=== PATIENT | female | born 1960 | race Hispanic/Latino ===

== ENCOUNTER → 2020-01-12 | Outpatient (CLI) | payer BC | END | disposition home or self-care (01) | LOC: RAH 08:30 | PROVIDERS: ATTEND Internal Medicine Gastroenterology | DX: K74.60 Unspecified cirrhosis of liver (principal) | CPT/HCPCS: 76700; 93975 ==

== ENCOUNTER → 2021-02-28 | Outpatient (CLI) | payer OTHER ==
[~2021-02-28] MED LIST: ALBUMIN (HUMAN) 25% 200 ML IV SCH
[2021-02-28 08:29] LABS: BASOPHILS % (AUTO) 0.8 % (0.0-5.0); EOSINOPHILS % (AUTO) 3.2 % (0.0-8.0); HEMATOCRIT 32.3 % (36-48); LYMPHOCYTES % (AUTO) 18.1 % (21.0-51.0); MEAN CORPUSCULAR HEMOGLOBIN 27.9 pg (27.0-33.0); MEAN CORPUSCULAR HGB CONC 32.8 g/dL (32.0-36.0); MONOCYTES % (AUTO) 10.1 % (3.0-13.0); NEUTROPHILS % (AUTO) 67.6 % (40.0-77.0); PLATELET COUNT (AUTO) 72 K/uL (130-400); RED CELL DISTRIBUTION WIDTH 16.2 % (11.0-15.5)
[2021-02-28 08:45] LABS: ALBUMIN 2.5 g/dL (3.5-5.0); BILIRUBIN,TOTAL 1.4 mg/dL (0.2-1.0); CREATININE 0.7 mg/dL (0.5-1.5)
[2021-02-28 08:48] LABS: INR 1.1 (0.85-1.15); PROTHROMBIN TIME 11.9 SEC (9.6-11.6)
[2021-02-28 13:20] LABS: SPECIMENTYPE,BODY FLUID ASCITES
[2021-02-28 13:21] LABS: APPEARANCE BODY FLUID SLIGHTLY CLOUDY (CLEAR); COLOR,BODY FLUID YELLOW (LT YELLOW); TOTAL VOLUME,BODY FLUID 4500 mL
[2021-02-28 13:22] LABS: BODY FLUID RBC 123 /cu. mm.; BODY FLUID WBC 200 /cu. mm.
[2021-02-28 13:43] LABS: ALBUMIN,BODY FLUID 0.3 g/dL
[2021-02-28 14:04] LABS: BF LYMPHOCYTE 45 %; BF MESOTHELIAL 21 %; BF MONOCYTE 34 %
== END | disposition home or self-care (01) ==
LOC: RAH 06:40
PROVIDERS: ATTEND Internal Medicine Gastroenterology
DX: R18.8 Other ascites (principal); K74.60 Unspecified cirrhosis of liver; Z79.01 Long term (current) use of anticoagulants
CPT/HCPCS: 36415; 49083; 80053; 82042; 84157; 85025; 85610; 87071; 87205; 88112; 88305; 89051; C1729; P9046; 96365

== ENCOUNTER → 2021-12-22 | Outpatient (CLI) | payer OTHER ==
[~2021-12-22] MED LIST changes: +LIDOCAINE HCL MPF 1% 5ML VIAL ONE
[2021-12-22 09:54] LABS: BASOPHILS % (AUTO) 0.7 % (0.0-5.0); EOSINOPHILS % (AUTO) 5.4 % (0.0-8.0); HEMATOCRIT 32.8 % (36-48); LYMPHOCYTES % (AUTO) 16.7 % (21.0-51.0); MEAN CORPUSCULAR HEMOGLOBIN 29.8 pg (27.0-33.0); MEAN CORPUSCULAR HGB CONC 34.1 g/dL (32.0-36.0); MEAN CORPUSCULAR VOLUME 87.2 fL (79-99); MONOCYTES % (AUTO) 12.3 % (3.0-13.0); NEUTROPHILS % (AUTO) 64.7 % (40.0-77.0); PLATELET COUNT (AUTO) 70 K/uL (130-400); RED BLOOD CELL COUNT(AUTO) 3.76 MIL/uL (4.00-5.50); RED CELL DISTRIBUTION WIDTH 14.5 % (11.0-15.5); WHITE BLOOD COUNT (AUTO) 4.1 K/uL (4.8-10.8)
[2021-12-22 10:01] LABS: INR 1.05 (0.85-1.15); PROTHROMBIN TIME 11.4 SEC (9.6-11.6)
[2021-12-22 10:19] LABS: BILIRUBIN,TOTAL 2.2 mg/dL (0.2-1.0); CREATININE 0.6 mg/dL (0.5-1.5); POTASSIUM 4.5 mmol/L (3.5-5.1); TOTAL PROTEIN, SERUM 7.4 g/dL (6.0-8.3)
[2021-12-22 12:34] LABS: SPECIMENTYPE,BODY FLUID ASCITES
[2021-12-22 12:35] LABS: APPEARANCE BODY FLUID CLEAR (CLEAR); BODY FLUID RBC 253 /cu. mm.; BODY FLUID WBC 273 /cu. mm.; COLOR,BODY FLUID YELLOW (LT YELLOW); TOTAL VOLUME,BODY FLUID 5000 mL
[2021-12-22 13:21] LABS: BF LYMPHOCYTE 54 %; BF MESOTHELIAL 37 %; BF MONOCYTE 4 %
== END | disposition home or self-care (01) ==
LOC: RAH 08:50
PROVIDERS: ATTEND Internal Medicine Gastroenterology
DX: R18.8 Other ascites (principal); R06.02 Shortness of breath; K74.60 Unspecified cirrhosis of liver; I10 Essential (primary) hypertension; E78.5 Hyperlipidemia, unspecified; E11.9 Type 2 diabetes mellitus without complications; F32.A Depression, unspecified; E66.9 Obesity, unspecified; Z90.710 Acquired absence of both cervix and uterus; Z79.899 Other long term (current) drug therapy; Z79.84 Long term (current) use of oral hypoglycemic drugs; Z98.51 Tubal ligation status; Z79.01 Long term (current) use of anticoagulants; Z86.010 Personal history of colon polyps; Z98.890 Other specified postprocedural states; Z68.31 Body mass index [BMI] 31.0-31.9, adult
CPT/HCPCS: 36415; 49083; 71046; 80053; 85025; 85610; 87071; 87205; 89051; C1729; P9046; 96365; J3490

== ENCOUNTER → 2022-04-14 | Outpatient (CLI) | payer OTHER | END | disposition home or self-care (01) | LOC: RAH 08:53 | PROVIDERS: ATTEND Internal Medicine Gastroenterology | DX: K74.60 Unspecified cirrhosis of liver (principal); K59.89 Other specified functional intestinal disorders | CPT/HCPCS: 76700; 93975 ==

== ENCOUNTER → 2022-11-23 | Outpatient (CLI) | payer OTHER | END | disposition home or self-care (01) | LOC: RAH 09:40 | PROVIDERS: ATTEND Internal Medicine Gastroenterology | DX: K74.60 Unspecified cirrhosis of liver (principal); I82.0 Budd-Chiari syndrome | CPT/HCPCS: 76700; 93975 ==

== ENCOUNTER 2023-04-19 14:33 | Emergency (ER) | payer OTHER ==
[~2023-04-19] VITALS: Ht 152.4 cm; Wt 74.4 kg
[2023-04-19] MEDS ORDERED: LIDOP TP (20:21)
[2023-04-19] MEDS ORDERED: MUPI22OI2 TP (20:21)
[2023-04-19 20:28] VITALS: BP 131/62; PULSE 69; RESP 17; O2SAT 97
== END 2023-04-19 20:34 | disposition home or self-care (01) ==
LOC: EDH 14:33
DX: S20.219A Contusion of unspecified front wall of thorax, initial encounter (principal); S91.311A Laceration without foreign body, right foot, initial encounter; E11.9 Type 2 diabetes mellitus without complications; I10 Essential (primary) hypertension; V89.2XXA Person injured in unspecified motor-vehicle accident, traffic, initial encounter; Y93.89 Activity, other specified; Y92.89 Other specified places as the place of occurrence of the external cause; Y99.8 Other external cause status
CPT/HCPCS: 12002; 71046; 72170; 84484; 93005

== ENCOUNTER 2023-05-30 15:19 | Observation (INO) | payer OTHER ==
[~2023-05-30] VITALS: Ht 152.4 cm; Wt 80.5 kg
[~2023-05-30 15:19] MED LIST changes: -ALBUMIN (HUMAN) 25% 200 ML IV SCH; -LIDOCAINE HCL MPF 1% 5ML VIAL ONE; +LIDOP TP; +MUPI22OI2 TP
[2023-05-30 15:56] LABS: HEMATOCRIT 29.9 % (36-48); MEAN CORPUSCULAR HEMOGLOBIN 30.1 pg (27.0-33.0); MEAN CORPUSCULAR HGB CONC 34.8 g/dL (32.0-36.0); MEAN CORPUSCULAR VOLUME 86.7 fL (79-99); PLATELET COUNT (AUTO) 59 K/uL (130-400); RED BLOOD CELL COUNT(AUTO) 3.45 MIL/uL (4.00-5.50); RED CELL DISTRIBUTION WIDTH 14.7 % (11.0-15.5); WHITE BLOOD COUNT (AUTO) 4.3 K/uL (4.8-10.8)
[2023-05-30 16:08] LABS: CREATININE 1.1 mg/dL (0.5-1.5)
[2023-05-30 16:12] LABS: BILIRUBIN,TOTAL 1.8 mg/dL (0.2-1.0); TOTAL PROTEIN, SERUM 7.1 g/dL (6.0-8.3)
[2023-05-30 16:27] LABS: PLATELET MORPHOLOGY COMMENT DECREASED
[2023-05-30 17:51] LABS: INR 0.94 (0.85-1.15); PROTHROMBIN TIME 10.9 SEC (9.6-11.6)
[2023-05-30 17:53] LABS: PARTIAL THROMBOPLASTIN TIME 27.3 SEC (26.3-35.5)
[2023-05-30] MEDS ORDERED: ONDANSETRON 4MG INJ IV PRN (20:30)
[2023-05-30] MEDS ORDERED: DEXTROSE 50%-WATER 50 ML DISP.SYRIN IV PRN (21:00)
[2023-05-30] MEDS: INSULIN HUMULIN R 100 UNIT/ML 3ML SQ SCH (21:00)
[2023-05-30] MEDS ORDERED: MAGNESIUM 2GM PREMIX 50ML 50 ML IV PRN (21:00)
[2023-05-30] MEDS ORDERED: GLUCAGON 1MG KIT 1 MG ML IM PRN (21:00)
[2023-05-30] MEDS ORDERED: POTASSIUM CHLORIDE 20MEQ/100ML 100 ML IV PRN (21:00)
[2023-05-30] MEDS: CEFTRIAXONE 1G VIAL IVPB SCH (21:23)
[2023-05-30] MEDS: FAMOTIDINE 20MG VIAL IV SCH (21:23)
[2023-05-30] MEDS ORDERED: GABA-529 PO (22:23)
[2023-05-30] MEDS ORDERED: OMEP40CA21 PO (22:23)
[2023-05-30] MEDS ORDERED: PROP10TA10 PO (22:23)
[2023-05-30] MEDS ORDERED: LISI2.5T13 PO (22:23)
[2023-05-30] MEDS ORDERED: INSU100I24 SQ (22:23)
[2023-05-30] MEDS ORDERED: CALC-190 PO (22:23)
[2023-05-30] MEDS ORDERED: RIFA550T PO (22:23)
[2023-05-30] MEDS ORDERED: FOLI1TAB85 PO (22:23)
[2023-05-30] MEDS ORDERED: LINA5TAB PO (22:23)
[2023-05-30] MEDS ORDERED: SPIR100T5 PO (22:23)
[2023-05-30] MEDS ORDERED: FURO40TA5 PO (22:23)
[2023-05-30] MEDS ORDERED: LACT10SO9 PO (22:23)
[2023-05-31] VITALS (17 sets, daily range): BP systolic 135–163; BP diastolic 39–68; PULSE 67–87; RESP 16–19; O2SAT 97
[2023-05-31] MEDS: INSULIN HUMULIN R 100 UNIT/ML 3ML SQ SCH ×4 (05:44→20:38)
[2023-05-31 07:17] LABS: BASOPHILS # (AUTO) 0.03 K/uL (0.00-0.20); BASOPHILS % (AUTO) 0.8 % (0.0-5.0); EOSINOPHILS # (AUTO) 0.23 K/uL (0.00-0.70); EOSINOPHILS % (AUTO) 6.5 % (0.0-8.0); HEMATOCRIT 28.7 % (36-48); IMMATURE GRANULOCYTE ABSOLUTE 0.01 K/uL (0-1); LYMPHOCYTES # (AUTO) 0.7 K/uL (1.0-4.8); LYMPHOCYTES % (AUTO) 18.4 % (21.0-51.0); MEAN CORPUSCULAR HEMOGLOBIN 29.8 pg (27.0-33.0); MEAN CORPUSCULAR HGB CONC 33.8 g/dL (32.0-36.0); MEAN CORPUSCULAR VOLUME 88.3 fL (79-99); MONOCYTES # (AUTO) 0.4 K/uL (0.1-1.0); NEUTROPHILS # (AUTO) 2.2 K/uL (1.8-7.7); PLATELET COUNT (AUTO) 51 K/uL (130-400); RED BLOOD CELL COUNT(AUTO) 3.25 MIL/uL (4.00-5.50); RED CELL DISTRIBUTION WIDTH 14.6 % (11.0-15.5); WHITE BLOOD COUNT (AUTO) 3.5 K/uL (4.8-10.8)
[2023-05-31 07:33] LABS: ALBUMIN 2.7 g/dL (3.5-5.0); BILIRUBIN,TOTAL 1.6 mg/dL (0.2-1.0); CREATININE 0.9 mg/dL (0.5-1.5); MAGNESIUM 1.3 mg/dL (1.80-2.40); POTASSIUM 3.9 mmol/L (3.5-5.1); TOTAL PROTEIN, SERUM 6.2 g/dL (6.0-8.3)
[2023-05-31 08:28] LABS: B-TYPE NATRIURETIC PEPTIDE 20 pg/mL (0-100)
[2023-05-31] MEDS: FAMOTIDINE 20MG VIAL IV SCH ×2 (08:29→19:54)
[2023-05-31 10:04] LABS: HEMOGLOBIN A1C 9.9 % (4.0-6.0)
[2023-05-31 10:27] LABS: CHOLESTEROL 105 mg/dL (<200); HDL CHOLESTEROL 29 mg/dL (35-85); LDL DIRECT 70 mg/dL (0-99); TRIGLYCERIDES 72 mg/dL (30-200)
[2023-05-31 14:26] LABS: BODY FLUID RBC 594 /cu. mm.; BODY FLUID WBC 208 /cu. mm.
[2023-05-31 14:32] LABS: APPEARANCE BODY FLUID SLIGHTLY CLOUDY (CLEAR); COLOR,BODY FLUID YELLOW (LT YELLOW); SPECIMENTYPE,BODY FLUID ASCITES
[2023-05-31 14:33] LABS: TOTAL VOLUME,BODY FLUID 3000 mL
[2023-05-31 15:05] LABS: BF LYMPHOCYTE 34 %; BF MACROPHAGE 55; BF OTHER CELLS 1; BF TOTAL CELLS COUNTED 100
[2023-05-31] MEDS: CEFTRIAXONE 1G VIAL IVPB SCH (19:54)
[2023-06-01] VITALS: BP 125/50; PULSE 78; RESP 16
[2023-06-01 03:56] VITALS: BP 124/57; PULSE 75; RESP 16
[2023-06-01] MEDS: INSULIN HUMULIN R 100 UNIT/ML 3ML SQ SCH ×2 (05:43→11:39)
[2023-06-01 08:00] VITALS: BP 133/62; PULSE 75; RESP 18; O2SAT 98
[2023-06-01 08:59] LABS: MEAN CORPUSCULAR HEMOGLOBIN 29.8 pg (27.0-33.0); MEAN CORPUSCULAR HGB CONC 33.8 g/dL (32.0-36.0); MEAN CORPUSCULAR VOLUME 88.2 fL (79-99); RED BLOOD CELL COUNT(AUTO) 3.63 MIL/uL (4.00-5.50); RED CELL DISTRIBUTION WIDTH 14.5 % (11.0-15.5); WHITE BLOOD COUNT (AUTO) 3.7 K/uL (4.8-10.8)
[2023-06-01 09:06] LABS: POTASSIUM 4.8 mmol/L (3.5-5.1)
[2023-06-01 09:11] LABS: ALBUMIN 2.8 g/dL (3.5-5.0); BILIRUBIN,TOTAL 1.6 mg/dL (0.2-1.0); TOTAL PROTEIN, SERUM 6.9 g/dL (6.0-8.3)
[2023-06-01] MEDS: FAMOTIDINE 20MG VIAL IV SCH (09:15)
[2023-06-01] MEDS ORDERED: MAGNESIUM 2GM PREMIX 50ML 50 ML IV SCH (10:30)
[2023-06-01] MEDS ORDERED: MAGNESIUM OXIDE 400 MG TABLET PO ONE ×2 (11:30)
[2023-06-01 12:00] VITALS: BP 143/86; PULSE 76; RESP 16
[2023-06-01] MEDS ORDERED: PROPRANOLOL HCL 10 MG TAB PO SCH (14:00)
[2023-06-01] MEDS ORDERED: RIFAXIMIN 550 MG TABLET PO SCH (21:00)
[2023-06-01] MEDS ORDERED: GABAPENTIN 100 MG CAPSULE PO SCH (21:00)
[2023-06-01] MEDS ORDERED: LACTULOSE 20 GM/30 ML UDCUP PO SCH (21:00)
[2023-06-02] MEDS ORDERED: CA 600MG+VIT D 400 UNIT TAB 1 TAB TABLET PO SCH (09:00)
[2023-06-02] MEDS ORDERED: LISINOPRIL 2.5 MG TABLET PO SCH (09:00)
[2023-06-02] MEDS ORDERED: INSULIN GLARGINE 100 UNITS/ML 10 ML VIAL SQ SCH (09:00)
[2023-06-02] MEDS ORDERED: NON-FORMULARY MEDICATION 1 EACH (Omeprazole 40 MG) PO SCH (09:00)
[2023-06-02] MEDS ORDERED: INSULIN DEGLUDEC 24 UNIT SQ SCH (09:00)
[2023-06-02] MEDS ORDERED: LINAGLIPTIN 5 MG TABLET PO SCH (09:00)
[2023-06-02] MEDS ORDERED: NON-FORMULARY MEDICATION 1 EACH (Vit B Cmplx 3/FA/Vit C/Biotin (Rena-Vite Rx Tablet) 1 EAC PO SCH (09:00)
[2023-06-02] MEDS ORDERED: SPIRONOLACTONE 25 MG TAB PO SCH (09:00)
[2023-06-02] MEDS ORDERED: FUROSEMIDE 40 MG TABLET PO SCH (09:00)
[2023-06-02] MEDS ORDERED: Vitamin B Complex/Vit C/Folic Acid PO SCH (09:00)
[2023-06-02] MEDS ORDERED: SPIRONOLACTONE 100 MG PO SCH (09:00)
[2023-06-02] MEDS ORDERED: PANTOPRAZOLE 40 MG TAB DR PO SCH (09:00)
== END 2023-06-01 13:15 | disposition home or self-care (01) ==
LOC: EDH 15:19 → EDHIP 20:39 → 4BH 05-31 00:41
PROVIDERS: ADMIT Hospitalist; ATTEND Hospitalist
DX: R18.8 Other ascites (principal); K74.60 Unspecified cirrhosis of liver; D72.819 Decreased white blood cell count, unspecified; D69.6 Thrombocytopenia, unspecified; D64.9 Anemia, unspecified; E87.1 Hypo-osmolality and hyponatremia; E44.1 Mild protein-calorie malnutrition; I10 Essential (primary) hypertension; E11.9 Type 2 diabetes mellitus without complications; E83.42 Hypomagnesemia; K29.70 Gastritis, unspecified, without bleeding; Z90.710 Acquired absence of both cervix and uterus; Z79.899 Other long term (current) drug therapy; Z98.890 Other specified postprocedural states; Z79.4 Long term (current) use of insulin; Z68.34 Body mass index [BMI] 34.0-34.9, adult
CPT/HCPCS: 96375; 99284; 83735 ×3; 80053 ×3; 85027 ×2; 85610; 85730; 82948 ×6; 36415 ×3; 71045; 96376 ×2; 96365; 83036; 80061; 83880; 85025; 89051; 87071; 87205; 82306; 82607; 49083; G0378 ×40; J3490 ×4; J0696 ×2; J3475; C1729; J1815

== ENCOUNTER → 2023-07-04 | Outpatient (CLI) | payer OTHER ==
[~2023-07-04] MED LIST changes: +ALBUMIN (HUMAN) 25% 200 ML IV SCH; +CALC-190 PO; +FOLI1TAB85 PO; +FURO40TA5 PO; +GABA-529 PO; +INSU100I24 SQ; +LACT10SO9 PO; -LIDOP TP; +LINA5TAB PO; +LISI2.5T13 PO; -MUPI22OI2 TP; +OMEP40CA21 PO; +PROP10TA10 PO; +RIFA550T PO; +SPIR100T5 PO
[2023-07-04 11:10] LABS: BASOPHILS # (AUTO) 0.03 K/uL (0.00-0.20); BASOPHILS % (AUTO) 0.4 % (0.0-5.0); EOSINOPHILS # (AUTO) 0.27 K/uL (0.00-0.70); HEMATOCRIT 31.6 % (36-48); IMMATURE GRANULOCYTE ABSOLUTE 0.04 K/uL (0-1); LYMPHOCYTES # (AUTO) 0.8 K/uL (1.0-4.8); MEAN CORPUSCULAR HEMOGLOBIN 29.6 pg (27.0-33.0); MEAN CORPUSCULAR HGB CONC 33.9 g/dL (32.0-36.0); MEAN CORPUSCULAR VOLUME 87.5 fL (79-99); MONOCYTES # (AUTO) 0.7 K/uL (0.1-1.0); MONOCYTES % (AUTO) 10.6 % (3.0-13.0); NEUTROPHILS # (AUTO) 4.8 K/uL (1.8-7.7); NEUTROPHILS % (AUTO) 72.4 % (40.0-77.0); PLATELET COUNT (AUTO) 67 K/uL (130-400); RED BLOOD CELL COUNT(AUTO) 3.61 MIL/uL (4.00-5.50); RED CELL DISTRIBUTION WIDTH 14.8 % (11.0-15.5); WHITE BLOOD COUNT (AUTO) 6.7 K/uL (4.8-10.8)
[2023-07-04 11:22] LABS: INR 1.08 (0.85-1.15); PROTHROMBIN TIME 12.5 SEC (9.6-11.6)
[2023-07-04 11:23] LABS: PARTIAL THROMBOPLASTIN TIME 29.8 SEC (26.3-35.5)
[2023-07-04 11:26] LABS: BILIRUBIN,TOTAL 1.7 mg/dL (0.2-1.0); CREATININE 0.8 mg/dL (0.5-1.5); POTASSIUM 4.2 mmol/L (3.5-5.1); TOTAL PROTEIN, SERUM 7.1 g/dL (6.0-8.3)
[2023-07-04 15:54] LABS: BODY FLUID RBC 478 /cu. mm.; BODY FLUID WBC 386 /cu. mm.
[2023-07-04 16:04] LABS: TOTAL PROTEIN,BODY FLUID < 2.0 g/dL
[2023-07-04 16:05] LABS: ALBUMIN,BODY FLUID < 0.6 g/dL
[2023-07-04 16:06] LABS: APPEARANCE BODY FLUID SLIGHTLY CLOUDY (CLEAR); COLOR,BODY FLUID LT YELLOW (LT YELLOW); SPECIMENTYPE,BODY FLUID ASCITES; TOTAL VOLUME,BODY FLUID 3700 mL
[2023-07-04 16:15] LABS: BF LYMPHOCYTE 59 %; BF MACROPHAGE 20; BF OTHER CELLS 1; BF TOTAL CELLS COUNTED 100
== END | disposition home or self-care (01) ==
LOC: RAH 09:45
PROVIDERS: ATTEND Internal Medicine Gastroenterology
DX: R18.8 Other ascites (principal); K74.69 Other cirrhosis of liver; Z79.01 Long term (current) use of anticoagulants
CPT/HCPCS: 49083; 84157; 80053; 85025; 89051; 85610; 85730; 87071; 87076; 87205; 82042; 36415; 88305; 88112; C1729

== ENCOUNTER → 2023-08-29 | Outpatient (CLI) | payer OTHER ==
[~2023-08-29] MED LIST changes: -ALBUMIN (HUMAN) 25% 200 ML IV SCH
[2023-08-29 10:46] LABS: BASOPHILS # (AUTO) 0.05 K/uL (0.00-0.20); EOSINOPHILS # (AUTO) 0.23 K/uL (0.00-0.70); EOSINOPHILS % (AUTO) 4.5 % (0.0-8.0); HEMATOCRIT 32.4 % (36-48); IMMATURE GRANULOCYTE ABSOLUTE 0.07 K/uL (0-1); LYMPHOCYTES # (AUTO) 0.5 K/uL (1.0-4.8); LYMPHOCYTES % (AUTO) 9.4 % (21.0-51.0); MEAN CORPUSCULAR HEMOGLOBIN 29.2 pg (27.0-33.0); MEAN CORPUSCULAR VOLUME 88.3 fL (79-99); MONOCYTES # (AUTO) 0.5 K/uL (0.1-1.0); MONOCYTES % (AUTO) 9.4 % (3.0-13.0); NEUTROPHILS # (AUTO) 3.8 K/uL (1.8-7.7); NEUTROPHILS % (AUTO) 74.3 % (40.0-77.0); PLATELET COUNT (AUTO) 117 K/uL (130-400); RED BLOOD CELL COUNT(AUTO) 3.67 MIL/uL (4.00-5.50); RED CELL DISTRIBUTION WIDTH 14.7 % (11.0-15.5); WHITE BLOOD COUNT (AUTO) 5.1 K/uL (4.8-10.8)
[2023-08-29 10:57] LABS: INR 0.94 (0.85-1.15)
[2023-08-29 10:59] LABS: PARTIAL THROMBOPLASTIN TIME 31.5 SEC (26.3-35.5)
[2023-08-29 11:00] LABS: ALBUMIN 2.5 g/dL (3.5-5.0); BILIRUBIN,TOTAL 1.1 mg/dL (0.2-1.0); CREATININE 1.1 mg/dL (0.5-1.5); POTASSIUM 5.4 mmol/L (3.5-5.1); TOTAL PROTEIN, SERUM 7.1 g/dL (6.0-8.3)
[2023-08-29] MEDS: ALBUMIN (HUMAN) 25% 200 ML IV SCH (14:23)
[2023-08-29 17:27] LABS: BODY FLUID RBC 809 /cu. mm.; BODY FLUID WBC 415 /cu. mm.
[2023-08-29 17:30] LABS: APPEARANCE BODY FLUID CLOUDY (CLEAR); COLOR,BODY FLUID YELLOW (LT YELLOW); SPECIMENTYPE,BODY FLUID ASCITES; TOTAL VOLUME,BODY FLUID 7000 mL
[2023-08-29 17:45] LABS: BF EOSINOPHIL 1 %; BF MESOTHELIAL 1 %; BF OTHER CELLS 1; BF TOTAL CELLS COUNTED 100
[2023-08-29 18:08] LABS: BF LYMPHOCYTE 27 %; BF MACROPHAGE 39
== END | disposition home or self-care (01) ==
LOC: RAH 09:55
PROVIDERS: ATTEND Internal Medicine Gastroenterology
DX: R18.8 Other ascites (principal); K74.69 Other cirrhosis of liver; E11.9 Type 2 diabetes mellitus without complications; I10 Essential (primary) hypertension; I85.00 Esophageal varices without bleeding; I81 Portal vein thrombosis; K21.00 Gastro-esophageal reflux disease with esophagitis, without bleeding; K72.90 Hepatic failure, unspecified without coma; D12.6 Benign neoplasm of colon, unspecified; K57.30 Diverticulosis of large intestine without perforation or abscess without bleeding; F32.A Depression, unspecified; E55.9 Vitamin D deficiency, unspecified; E78.5 Hyperlipidemia, unspecified; K64.9 Unspecified hemorrhoids; E66.9 Obesity, unspecified; Z68.33 Body mass index [BMI] 33.0-33.9, adult; Z79.84 Long term (current) use of oral hypoglycemic drugs; Z86.73 Personal history of transient ischemic attack (TIA), and cerebral infarction without residual deficits; Z79.4 Long term (current) use of insulin; Z79.899 Other long term (current) drug therapy; Z90.710 Acquired absence of both cervix and uterus
CPT/HCPCS: 49083; 80053; 85025; 89051; 85610; 85730; 36415; P9046; C1729; 96365

== ENCOUNTER → 2023-10-23 | Outpatient (CLI) | payer OTHER ==
[~2023-10-23] MED LIST changes: +ALBUMIN (HUMAN) 25% 200 ML IV SCH
[2023-10-23] MEDS: ALBUMIN (HUMAN) 25% 200 ML IV SCH (10:19)
[2023-10-23 10:24] LABS: BASOPHILS # (AUTO) 0.04 K/uL (0.00-0.20); BASOPHILS % (AUTO) 0.4 % (0.0-5.0); EOSINOPHILS # (AUTO) 0.12 K/uL (0.00-0.70); EOSINOPHILS % (AUTO) 1.2 % (0.0-8.0); HEMATOCRIT 30.7 % (36-48); IMMATURE GRANULOCYTE ABSOLUTE 0.06 K/uL (0-1); LYMPHOCYTES # (AUTO) 0.5 K/uL (1.0-4.8); LYMPHOCYTES % (AUTO) 5.1 % (21.0-51.0); MEAN CORPUSCULAR HEMOGLOBIN 29.7 pg (27.0-33.0); MEAN CORPUSCULAR HGB CONC 32.6 g/dL (32.0-36.0); MEAN CORPUSCULAR VOLUME 91.1 fL (79-99); MONOCYTES # (AUTO) 0.6 K/uL (0.1-1.0); MONOCYTES % (AUTO) 5.9 % (3.0-13.0); NEUTROPHILS # (AUTO) 8.8 K/uL (1.8-7.7); NEUTROPHILS % (AUTO) 86.8 % (40.0-77.0); PLATELET COUNT (AUTO) 88 K/uL (130-400); RED BLOOD CELL COUNT(AUTO) 3.37 MIL/uL (4.00-5.50); WHITE BLOOD COUNT (AUTO) 10.1 K/uL (4.8-10.8)
[2023-10-23 10:27] LABS: INR 1.05 (0.85-1.15); PROTHROMBIN TIME 12.3 SEC (9.6-11.6)
[2023-10-23 10:29] LABS: PARTIAL THROMBOPLASTIN TIME 29.5 SEC (26.3-35.5)
[2023-10-23 10:30] LABS: ALBUMIN 2.8 g/dL (3.5-5.0); BILIRUBIN,TOTAL 2.8 mg/dL (0.2-1.0); POTASSIUM 5.1 mmol/L (3.5-5.1); TOTAL PROTEIN, SERUM 7.3 g/dL (6.0-8.3)
[2023-10-23 17:04] LABS: BODY FLUID RBC 210 /cu. mm.; BODY FLUID WBC 280 /cu. mm.
[2023-10-23 17:41] LABS: COLOR,BODY FLUID LT YELLOW (LT YELLOW); SPECIMENTYPE,BODY FLUID ASCITES
[2023-10-23 17:42] LABS: APPEARANCE BODY FLUID SLIGHTLY CLOUDY (CLEAR); TOTAL VOLUME,BODY FLUID 7200 mL
[2023-10-23 18:16] LABS: BF EOSINOPHIL 3 %; BF LYMPHOCYTE 11 %; BF MACROPHAGE 37; BF MESOTHELIAL 2 %; BF OTHER CELLS 2; BF TOTAL CELLS COUNTED 100
== END | disposition home or self-care (01) ==
LOC: RAH 09:09
PROVIDERS: ATTEND Internal Medicine Gastroenterology
DX: R18.8 Other ascites (principal); K74.69 Other cirrhosis of liver; I85.10 Secondary esophageal varices without bleeding; R14.0 Abdominal distension (gaseous); K64.9 Unspecified hemorrhoids; E55.9 Vitamin D deficiency, unspecified; I11.0 Hypertensive heart disease with heart failure; K21.00 Gastro-esophageal reflux disease with esophagitis, without bleeding; K72.90 Hepatic failure, unspecified without coma; K57.30 Diverticulosis of large intestine without perforation or abscess without bleeding; I81 Portal vein thrombosis; E11.9 Type 2 diabetes mellitus without complications; E78.5 Hyperlipidemia, unspecified; F32.A Depression, unspecified; E66.9 Obesity, unspecified; Z79.01 Long term (current) use of anticoagulants; Z79.899 Other long term (current) drug therapy; Z86.010 Personal history of colon polyps; Z68.35 Body mass index [BMI] 35.0-35.9, adult
CPT/HCPCS: 49083; 80053; 85025; 89051; 85610; 85730; 36415; P9046; C1729

== ENCOUNTER → 2023-11-22 | Outpatient (CLI) | payer OTHER ==
[2023-11-22 09:45] LABS: BASOPHILS # (AUTO) 0.03 K/uL (0.00-0.20); BASOPHILS % (AUTO) 0.6 % (0.0-5.0); EOSINOPHILS # (AUTO) 0.23 K/uL (0.00-0.70); EOSINOPHILS % (AUTO) 4.5 % (0.0-8.0); HEMATOCRIT 28.9 % (36-48); IMMATURE GRANULOCYTE ABSOLUTE 0.03 K/uL (0-1); LYMPHOCYTES # (AUTO) 0.6 K/uL (1.0-4.8); LYMPHOCYTES % (AUTO) 11.6 % (21.0-51.0); MEAN CORPUSCULAR HEMOGLOBIN 30.3 pg (27.0-33.0); MEAN CORPUSCULAR HGB CONC 33.9 g/dL (32.0-36.0); MEAN CORPUSCULAR VOLUME 89.5 fL (79-99); MONOCYTES # (AUTO) 0.7 K/uL (0.1-1.0); NEUTROPHILS # (AUTO) 3.6 K/uL (1.8-7.7); NEUTROPHILS % (AUTO) 69.7 % (40.0-77.0); PLATELET COUNT (AUTO) 64 K/uL (130-400); RED BLOOD CELL COUNT(AUTO) 3.23 MIL/uL (4.00-5.50); RED CELL DISTRIBUTION WIDTH 15.5 % (11.0-15.5); WHITE BLOOD COUNT (AUTO) 5.1 K/uL (4.8-10.8)
[2023-11-22 09:52] LABS: INR 0.97 (0.85-1.15); PROTHROMBIN TIME 11.5 SEC (9.6-11.6)
[2023-11-22 09:53] LABS: PARTIAL THROMBOPLASTIN TIME 30.5 SEC (26.3-35.5)
[2023-11-22 09:56] LABS: ALBUMIN 2.8 g/dL (3.5-5.0); BILIRUBIN,TOTAL 1.4 mg/dL (0.2-1.0); POTASSIUM 4.6 mmol/L (3.5-5.1); TOTAL PROTEIN, SERUM 7.4 g/dL (6.0-8.3)
[2023-11-22 17:55] LABS: APPEARANCE BODY FLUID CLOUDY (CLEAR); BODY FLUID RBC 590 /cu. mm.; BODY FLUID WBC 513 /cu. mm.; COLOR,BODY FLUID YELLOW (LT YELLOW); SPECIMENTYPE,BODY FLUID ASCITES; TOTAL VOLUME,BODY FLUID 2000 mL
[2023-11-22 18:32] LABS: BF LYMPHOCYTE 15 %; BF MONOCYTE 1 %; BF TOTAL CELLS COUNTED 100
== END | disposition home or self-care (01) ==
LOC: RAH 08:51
PROVIDERS: ATTEND Internal Medicine Gastroenterology
DX: R18.8 Other ascites (principal); K74.69 Other cirrhosis of liver; I10 Essential (primary) hypertension; E11.9 Type 2 diabetes mellitus without complications; I85.10 Secondary esophageal varices without bleeding; I81 Portal vein thrombosis; K21.00 Gastro-esophageal reflux disease with esophagitis, without bleeding; K72.90 Hepatic failure, unspecified without coma; F32.A Depression, unspecified; E55.9 Vitamin D deficiency, unspecified; E78.5 Hyperlipidemia, unspecified; E66.9 Obesity, unspecified; Z86.010 Personal history of colon polyps; Z68.33 Body mass index [BMI] 33.0-33.9, adult; Z79.84 Long term (current) use of oral hypoglycemic drugs; Z79.01 Long term (current) use of anticoagulants; Z79.899 Other long term (current) drug therapy; Z90.710 Acquired absence of both cervix and uterus
CPT/HCPCS: 49083; 80053; 85025; 89051; 85610; 85730; 36415; C1729

== ENCOUNTER → 2024-01-18 | Outpatient (CLI) | payer OTHER ==
[~2024-01-18] MED LIST changes: -ALBUMIN (HUMAN) 25% 200 ML IV SCH
[2024-01-18 09:56] LABS: BASOPHILS # (AUTO) 0.02 K/uL (0.00-0.20); BASOPHILS % (AUTO) 0.4 % (0.0-5.0); EOSINOPHILS # (AUTO) 0.33 K/uL (0.00-0.70); EOSINOPHILS % (AUTO) 6.9 % (0.0-8.0); IMMATURE GRANULOCYTE ABSOLUTE 0.03 K/uL (0-1); LYMPHOCYTES # (AUTO) 0.6 K/uL (1.0-4.8); LYMPHOCYTES % (AUTO) 13.3 % (21.0-51.0); MEAN CORPUSCULAR HEMOGLOBIN 30.5 pg (27.0-33.0); MEAN CORPUSCULAR HGB CONC 34.1 g/dL (32.0-36.0); MEAN CORPUSCULAR VOLUME 89.2 fL (79-99); MONOCYTES # (AUTO) 0.5 K/uL (0.1-1.0); NEUTROPHILS # (AUTO) 3.3 K/uL (1.8-7.7); NEUTROPHILS % (AUTO) 68.8 % (40.0-77.0); PLATELET COUNT (AUTO) 53 K/uL (130-400); RED BLOOD CELL COUNT(AUTO) 3.25 MIL/uL (4.00-5.50); RED CELL DISTRIBUTION WIDTH 14.7 % (11.0-15.5); WHITE BLOOD COUNT (AUTO) 4.8 K/uL (4.8-10.8)
[2024-01-18 10:03] LABS: INR 1.13 (0.85-1.15); PROTHROMBIN TIME 12.1 SEC (9.6-11.6)
[2024-01-18 10:04] LABS: PARTIAL THROMBOPLASTIN TIME 28.6 SEC (26.3-35.5)
[2024-01-18 10:12] LABS: ALBUMIN 2.9 g/dL (3.5-5.0); BILIRUBIN,TOTAL 1.6 mg/dL (0.2-1.0); TOTAL PROTEIN, SERUM 7.4 g/dL (6.0-8.3)
== END | disposition home or self-care (01) ==
LOC: RAH 09:22
PROVIDERS: ATTEND Internal Medicine Gastroenterology
DX: R18.8 Other ascites (principal)
CPT/HCPCS: 36415; 76705; 80053; 85025; 85610; 85730

== ENCOUNTER → 2024-05-23 | Outpatient (CLI) | payer OTHER ==
[~2024-05-23] MED LIST changes: +ALBUMIN (HUMAN) 25% 200 ML IV ONE
[2024-05-23 17:22] LABS: COLOR,BODY FLUID LT YELLOW (LT YELLOW); SPECIMENTYPE,BODY FLUID ASCITES; TOTAL VOLUME,BODY FLUID 9000 mL
[2024-05-23 17:23] LABS: APPEARANCE BODY FLUID SLIGHTLY CLOUDY (CLEAR)
[2024-05-23 17:26] LABS: BODY FLUID RBC 9 /cu. mm.; BODY FLUID WBC 258 /cu. mm.
[2024-05-23 17:48] LABS: BF LYMPHOCYTE 68 %; BF MACROPHAGE 17; BF MESOTHELIAL 13 %; BF TOTAL CELLS COUNTED 100
--- NOTE | 2024-05-27 14:28 | HMCIMG ---
US ABDOMINAL PARACENTESIS IR HISTORY: Ascites COMPARISON: None TECHNIQUE: Informed consent was obtained. Risks and benefits were explained to the patient. A timeout was performed. Patient was prepped and draped in a sterile fashion. Local anesthetics was given as required. Under ultrasound guidance, ascites fluid was localized. Paracentesis was performed. FINDINGS: Less than 2 cc blood loss is noted. Patient tolerated procedure without complication. Patient left the department in good condition. IMPRESSION: 1. Uncomplicated ultrasound guidance paracentesis.
== END | disposition home or self-care (01) ==
LOC: RAH 09:44
PROVIDERS: ATTEND Internal Medicine Gastroenterology
DX: R18.8 Other ascites (principal); K72.90 Hepatic failure, unspecified without coma; K74.60 Unspecified cirrhosis of liver; I85.10 Secondary esophageal varices without bleeding; D64.9 Anemia, unspecified; E55.9 Vitamin D deficiency, unspecified; K21.00 Gastro-esophageal reflux disease with esophagitis, without bleeding; I81 Portal vein thrombosis; K57.30 Diverticulosis of large intestine without perforation or abscess without bleeding; K55.9 Vascular disorder of intestine, unspecified; I10 Essential (primary) hypertension; E66.01 Morbid (severe) obesity due to excess calories; E11.9 Type 2 diabetes mellitus without complications; E78.5 Hyperlipidemia, unspecified; F32.A Depression, unspecified; Z86.0100 Personal history of colon polyps, unspecified; Z68.33 Body mass index [BMI] 33.0-33.9, adult; Z79.899 Other long term (current) drug therapy
CPT/HCPCS: 49083; 89051; P9046; C1729; 96365

== ENCOUNTER → 2024-07-11 | Outpatient (CLI) | payer OTHER ==
[~2024-07-11] MED LIST changes: -ALBUMIN (HUMAN) 25% 200 ML IV ONE; +ALBUMIN HUMAN 25% 200 ML IV ONE
--- NOTE | 2024-07-11 10:00 | NUR ---
U/S GD PARACENTESIS TOLERATED PROCEDURE. PERFORMED BY DR Darrian RAMIREZ. 5.0 LITERS OF YELLOW CLOUDY FLUID REMOVED. PUNCTURE SITE TO RLQ. SPECIMEN SENT TO LAB. ALBUMIN 25% 50 GRAMS GIVEN IV. END OF PROCEDURE AT 0940. DRESSING DRY AND INTACT. NO BLEEDING NOTED. DISCHARGE INSTRUCTIONS GIVEN. VERBALIZED UNDERSTANDING. JAIRON PAIN. DISCHARGE VIA WHEELCHAIR. DENIES PAIN. A&O.
--- NOTE | 2024-07-11 11:15 | HMCIMG ---
US ABDOMINAL PARACENTESIS IR HISTORY: Ascites COMPARISON: None TECHNIQUE: Informed consent was obtained. Risks and benefits were explained to the patient. A timeout was performed. Patient was prepped and draped in a sterile fashion. Local anesthetics was given as required. Under ultrasound guidance, ascites fluid was localized. Paracentesis was performed. FINDINGS: 5 L of yellowish fluid was aspirated. Less than 2 cc blood loss is noted. Patient tolerated procedure without complication. Patient left the department in good condition. IMPRESSION: 1. Uncomplicated ultrasound guidance paracentesis.
[2024-07-11 13:22] LABS: APPEARANCE BODY FLUID CLOUDY (CLEAR); COLOR,BODY FLUID YELLOW (LT YELLOW); SPECIMENTYPE,BODY FLUID ASCITES; TOTAL VOLUME,BODY FLUID 5000 mL
[2024-07-11 13:51] LABS: BODY FLUID RBC 348 /cu. mm.; BODY FLUID WBC 211 /cu. mm.
[2024-07-11 14:21] LABS: BF LYMPHOCYTE 54 %; BF MESOTHELIAL 5 %; BF MONOCYTE 31 %; BF TOTAL CELLS COUNTED 100
== END | disposition home or self-care (01) ==
LOC: RAH 08:05
PROVIDERS: ATTEND Internal Medicine Gastroenterology
DX: R18.8 Other ascites (principal); K72.90 Hepatic failure, unspecified without coma; K74.60 Unspecified cirrhosis of liver; I85.10 Secondary esophageal varices without bleeding; D64.9 Anemia, unspecified; K55.9 Vascular disorder of intestine, unspecified; K21.00 Gastro-esophageal reflux disease with esophagitis, without bleeding; I81 Portal vein thrombosis; K57.30 Diverticulosis of large intestine without perforation or abscess without bleeding; E55.9 Vitamin D deficiency, unspecified; I10 Essential (primary) hypertension; E11.9 Type 2 diabetes mellitus without complications; E78.5 Hyperlipidemia, unspecified; F32.A Depression, unspecified; Z86.0100 Personal history of colon polyps, unspecified; E66.01 Morbid (severe) obesity due to excess calories; Z68.34 Body mass index [BMI] 34.0-34.9, adult; Z79.899 Other long term (current) drug therapy
CPT/HCPCS: 49083; 89051; P9046; C1729; 96365

== ENCOUNTER → 2024-07-21 | Outpatient (CLI) | payer OTHER ==
[~2024-07-21] MED LIST changes: -ALBUMIN HUMAN 25% 200 ML IV ONE
--- NOTE | 2024-07-21 09:40 | NUR ---
U/S GUIDED PARACENTESIS PROCEDURE PERFORMED BY DR. Rayna RAMIREZ. PUNCTURE SITE RLQ AND PATIENT TOLERATED PROCEDURE WELL. TOTAL REMOVED 3.7 LITERS OF CLOUDY, KRISTA FLUID- SPECIMEN SENT TO LAB. END OF PROCEDURE AT 0920. CATHETER REMOVED AND DRESSING APPLIED- NO BLEEDING NOTED. DISCHARGE INSTRUCTIONS GIVEN TO PT AND VERBALIZED UNDERSTANDING. PATIENT DISCHARGED VIA WHEELCHAIR IN STABLE CONDITION ACCOMPANIED BY SPOUSE.
--- NOTE | 2024-07-21 10:46 | HMCIMG ---
US ABDOMINAL PARACENTESIS IR REASON: ASCITES TECHNIQUE: Paracentesis was performed with ultrasound guidance. The puncture site was selected in the Right lower quadrant and overlying skin prepped and draped in a sterile fashion. 1% Xylocaine infiltration was performed. Catheter was placed in the fluid using trocar technique. 3.7 L were removed. Fluid sample was submitted for laboratory evaluation. The patient showed no evidence of complication during the procedure. IMPRESSION: 1. Ultrasound-guided paracentesis.
[2024-07-21 13:26] LABS: BODY FLUID RBC 247 /cu. mm.; BODY FLUID WBC 183 /cu. mm.
[2024-07-21 13:33] LABS: APPEARANCE BODY FLUID TURBID (CLEAR); COLOR,BODY FLUID LT YELLOW (LT YELLOW); SPECIMENTYPE,BODY FLUID ASCITES; TOTAL VOLUME,BODY FLUID 3700 mL
[2024-07-21 14:00] LABS: BF LYMPHOCYTE 44 %; BF MESOTHELIAL 12 %; BF TOTAL CELLS COUNTED 25
== END ==
LOC: RAH 08:10
PROVIDERS: ATTEND Internal Medicine Gastroenterology
DX: R18.8 Other ascites (principal)
CPT/HCPCS: 49083; 89051; C1729

== ENCOUNTER → 2024-08-04 | Outpatient (CLI) | payer OTHER ==
[~2024-08-04] MED LIST changes: +ALBUMIN HUMAN 25% 200 ML IV ONE
--- NOTE | 2024-08-04 10:40 | NUR ---
U/S GUIDED PARACENTESIS TOLERATED PROCEDURE. PERFORMED BY DR Darrian RAMIREZ. 9.0 LITERS OF CLOUDY YELLOW FLUID REMOVED. SPECIMEN SENT TO LAB. ALBUMIN 25% 50 GRAMS GIVEN PER PROTOCOL. PUNCTURE SITE TO RLQ. END OF PROCEDURE AT 1020. DRESSING DRY AND INTACT. NO BLEEDING NOTED. DISCHARGE INSTRUCTIONS GIVEN. VERBALIZED UNDERSTANDING. DISCHARGE VIA WHEELCHAIR. DENIES PAIN. A&O.
[2024-08-04 10:46] LABS: BASOPHILS # (AUTO) 0.04 K/uL (0.00-0.20); BASOPHILS % (AUTO) 0.8 % (0.0-5.0); EOSINOPHILS # (AUTO) 0.82 K/uL (0.00-0.70); EOSINOPHILS % (AUTO) 15.5 % (0.0-8.0); HEMATOCRIT 28.7 % (36-48); IMMATURE GRANULOCYTE ABSOLUTE 0.03 K/uL (0-1); LYMPHOCYTES # (AUTO) 0.7 K/uL (1.0-4.8); LYMPHOCYTES % (AUTO) 12.3 % (21.0-51.0); MEAN CORPUSCULAR HEMOGLOBIN 30.7 pg (27.0-33.0); MEAN CORPUSCULAR HGB CONC 33.8 g/dL (32.0-36.0); MEAN CORPUSCULAR VOLUME 90.8 fL (79-99); MONOCYTES # (AUTO) 0.5 K/uL (0.1-1.0); MONOCYTES % (AUTO) 9.8 % (3.0-13.0); NEUTROPHILS # (AUTO) 3.2 K/uL (1.8-7.7); PLATELET COUNT (AUTO) 53 K/uL (130-400); RED BLOOD CELL COUNT(AUTO) 3.16 MIL/uL (4.00-5.50); RED CELL DISTRIBUTION WIDTH 13.9 % (11.0-15.5); WHITE BLOOD COUNT (AUTO) 5.3 K/uL (4.8-10.8)
[2024-08-04 10:56] LABS: INR 1.07 (0.85-1.15); PROTHROMBIN TIME 11.9 SEC (9.6-11.6)
[2024-08-04 10:57] LABS: PARTIAL THROMBOPLASTIN TIME 29.6 SEC (26.3-35.5)
[2024-08-04 11:03] LABS: ALBUMIN 2.9 g/dL (3.5-5.0); BILIRUBIN,TOTAL 2.3 mg/dL (0.2-1.0); POTASSIUM 4.8 mmol/L (3.5-5.1); TOTAL PROTEIN, SERUM 6.7 g/dL (6.0-8.3)
[2024-08-04 11:20] LABS: PLATELET MORPHOLOGY COMMENT DECREASED
--- NOTE | 2024-08-04 12:54 | HMCIMG ---
US ABDOMINAL PARACENTESIS IR HISTORY: Ascites COMPARISON: None TECHNIQUE: Informed consent was obtained. Risks and benefits were explained to the patient. A timeout was performed. Patient was prepped and draped in a sterile fashion. Local anesthetics was given as required. Under ultrasound guidance, ascites fluid was localized. Paracentesis was performed. FINDINGS: 9 L of yellowish fluid was aspirated. Less than 2 cc blood loss is noted. Patient tolerated procedure without complication. Patient left the department in good condition. IMPRESSION: 1. Uncomplicated ultrasound guidance paracentesis.
[2024-08-04 13:53] LABS: BODY FLUID RBC 180 /cu. mm.; BODY FLUID WBC 117 /cu. mm.
[2024-08-04 14:16] LABS: BF LYMPHOCYTE 42 %; BF MACROPHAGE 19; BF MESOTHELIAL 7 %; BF MONOCYTE 5 %; BF TOTAL CELLS COUNTED 100
[2024-08-04 14:17] LABS: APPEARANCE BODY FLUID SLIGHTLY CLOUDY (CLEAR); COLOR,BODY FLUID LT YELLOW (LT YELLOW); SPECIMENTYPE,BODY FLUID ASCITES; TOTAL VOLUME,BODY FLUID 9000 mL
== END | disposition home or self-care (01) ==
LOC: RAH 09:02
PROVIDERS: ATTEND Internal Medicine Gastroenterology
DX: R18.8 Other ascites (principal); I10 Essential (primary) hypertension; K21.9 Gastro-esophageal reflux disease without esophagitis; F32.A Depression, unspecified; E11.9 Type 2 diabetes mellitus without complications; E78.5 Hyperlipidemia, unspecified; K74.60 Unspecified cirrhosis of liver; E66.01 Morbid (severe) obesity due to excess calories; Z68.34 Body mass index [BMI] 34.0-34.9, adult; Z79.01 Long term (current) use of anticoagulants; Z79.899 Other long term (current) drug therapy
CPT/HCPCS: 49083; 96365; 80053; 85025; 89051; 85610; 85730; 36415; P9046; C1729

== ENCOUNTER → 2024-09-03 | Outpatient (CLI) | payer OTHER ==
[~2024-09-03] MED LIST changes: +ALBUMIN HUMAN 25% 200 ML IV SCH; -CALC-190 PO; +FERR-82 PO; -FOLI1TAB85 PO; +FURO20TA4 PO; -FURO40TA5 PO; -GABA-529 PO; -INSU100I24 SQ; +INSU100I72 SQ; -LACT10SO9 PO; -LINA5TAB PO; -LISI2.5T13 PO; +LISI5TAB21 PO; -RIFA550T PO; -SPIR100T5 PO; +SPIR50TA5 PO
--- NOTE | 2024-09-03 11:25 | NUR ---
U/S GD PARACENTESIS TOLERATED PROCEDURE. PERFORMED BY DR Darrian RAMIREZ. PUNCTURE SITE TO RLQ. 6.5 LITERS OF YELLOW CLOUDY ASCITES FLUID REMOVED AND SENT TO LAB. ALBUMIN 25% 50 GRAMS GIVEN PER PROTOCOL. END OF PROCEDURE AT 1105. DRESSING APPLIED. NO BLEEDING NOTED. DRY AND INTACT. DISCHARGE VIA WHEELCHAIR WITH SPOUSE. DISCHARGE INSTRUCTIONS GIVEN. VERBALIZED UNDERSTANDING. A&O. DENIES PAIN.
--- NOTE | 2024-09-03 13:03 | HMCIMG ---
US ABDOMINAL PARACENTESIS IR HISTORY: Ascites COMPARISON: None TECHNIQUE: Informed consent was obtained. Risks and benefits were explained to the patient. A timeout was performed. Patient was prepped and draped in a sterile fashion. Local anesthetics was given as required. Under ultrasound guidance, ascites fluid was localized. Paracentesis was performed. FINDINGS: 6.5 L of yellowish fluid was aspirated. Less than 2 cc blood loss is noted. Patient tolerated procedure without complication. Patient left the department in good condition. IMPRESSION: 1. Uncomplicated ultrasound guidance paracentesis.
[2024-09-03 14:59] LABS: BODY FLUID RBC 197 /cu. mm.; BODY FLUID WBC 134 /cu. mm.
[2024-09-03 15:08] LABS: APPEARANCE BODY FLUID CLOUDY (CLEAR); COLOR,BODY FLUID YELLOW (LT YELLOW); SPECIMENTYPE,BODY FLUID ASCITES; TOTAL VOLUME,BODY FLUID 6500 mL
[2024-09-03 15:48] LABS: BF LYMPHOCYTE 37 %; BF MACROPHAGE 40; BF MONOCYTE 1 %; BF TOTAL CELLS COUNTED 100
== END | disposition home or self-care (01) ==
LOC: RAH 09:31
PROVIDERS: ATTEND Internal Medicine Gastroenterology
DX: R18.8 Other ascites (principal); K72.90 Hepatic failure, unspecified without coma; K74.60 Unspecified cirrhosis of liver; I85.10 Secondary esophageal varices without bleeding; D64.9 Anemia, unspecified; E55.9 Vitamin D deficiency, unspecified; K21.00 Gastro-esophageal reflux disease with esophagitis, without bleeding; K57.30 Diverticulosis of large intestine without perforation or abscess without bleeding; I81 Portal vein thrombosis; I10 Essential (primary) hypertension; E78.5 Hyperlipidemia, unspecified; E11.9 Type 2 diabetes mellitus without complications; F32.A Depression, unspecified; K21.9 Gastro-esophageal reflux disease without esophagitis; E66.01 Morbid (severe) obesity due to excess calories; Z86.0100 Personal history of colon polyps, unspecified; Z79.899 Other long term (current) drug therapy
CPT/HCPCS: 49083; 89051; P9046; C1729; 96365

== ENCOUNTER → 2024-09-15 | Outpatient (CLI) | payer OTHER ==
[~2024-09-15] MED LIST changes: -ALBUMIN HUMAN 25% 200 ML IV ONE; -ALBUMIN HUMAN 25% 200 ML IV SCH
--- NOTE | 2024-09-15 11:00 | NUR ---
U/S GUIDED PARACENTESIS PROCEDURE PERFORMED BY DR. Rayna RAMIREZ. PUNCTURE SITE TO RLQ AND PATIENT TOLERATED PROCEDURE WELL. TOTAL REMOVED 3.0 LITERS OF CLOUDY, YELLOW ASCITES FLUID. END OF PROCEDURE AT 1045. CATHETER REMOVED AND DRESSING APPLIED- NO BLEEDING NOTED. PATIENT AAO X3 WITH NO C/O PAIN. SPECIMEN SENT TO LAB. PATIENT DISCHARGED VIA WHEELCHAIR ACCOMPANIED BY SPOUSE.
--- NOTE | 2024-09-15 16:15 | HMCIMG ---
US ABDOMINAL PARACENTESIS IR HISTORY: Ascites COMPARISON: None TECHNIQUE: Informed consent was obtained. Risks and benefits were explained to the patient. A timeout was performed. Patient was prepped and draped in a sterile fashion. Local anesthetics was given as required. Under ultrasound guidance, ascites fluid was localized. Paracentesis was performed. FINDINGS: 3 L of yellowish fluid was aspirated. Less than 2 cc blood loss is noted. Patient tolerated procedure without complication. Patient left the department in good condition. IMPRESSION: 1. Uncomplicated ultrasound guidance paracentesis.
[2024-09-15 17:18] LABS: BODY FLUID RBC 89 /cu. mm.; BODY FLUID WBC 72 /cu. mm.
[2024-09-15 19:21] LABS: APPEARANCE BODY FLUID CLEAR (CLEAR); COLOR,BODY FLUID YELLOW (LT YELLOW); SPECIMENTYPE,BODY FLUID ASCITES; TOTAL VOLUME,BODY FLUID 3000 mL
[2024-09-15 19:23] LABS: BF LYMPHOCYTE 70 %; BF MONOCYTE 11 %; BF TOTAL CELLS COUNTED 100
== END | disposition home or self-care (01) ==
LOC: RAH 10:05
PROVIDERS: ATTEND Internal Medicine Gastroenterology
DX: R18.8 Other ascites (principal); K74.60 Unspecified cirrhosis of liver; Z79.899 Other long term (current) drug therapy
CPT/HCPCS: 49083; 89051; C1729

== ENCOUNTER → 2024-09-29 | Outpatient (CLI) | payer OTHER ==
[2024-09-29 10:14] LABS: BASOPHILS # (AUTO) 0.06 K/uL (0.00-0.20); BASOPHILS % (AUTO) 0.8 % (0.0-5.0); EOSINOPHILS # (AUTO) 0.82 K/uL (0.00-0.70); EOSINOPHILS % (AUTO) 11.1 % (0.0-8.0); HEMATOCRIT 31.6 % (36-48); IMMATURE GRANULOCYTE ABSOLUTE 0.02 K/uL (0-1); LYMPHOCYTES # (AUTO) 0.7 K/uL (1.0-4.8); LYMPHOCYTES % (AUTO) 9.8 % (21.0-51.0); MEAN CORPUSCULAR HEMOGLOBIN 31.3 pg (27.0-33.0); MEAN CORPUSCULAR HGB CONC 33.9 g/dL (32.0-36.0); MEAN CORPUSCULAR VOLUME 92.4 fL (79-99); MONOCYTES # (AUTO) 0.9 K/uL (0.1-1.0); MONOCYTES % (AUTO) 11.8 % (3.0-13.0); NEUTROPHILS # (AUTO) 4.9 K/uL (1.8-7.7); NEUTROPHILS % (AUTO) 66.2 % (40.0-77.0); PLATELET COUNT (AUTO) 48 K/uL (130-400); RED BLOOD CELL COUNT(AUTO) 3.42 MIL/uL (4.00-5.50); RED CELL DISTRIBUTION WIDTH 15.1 % (11.0-15.5); WHITE BLOOD COUNT (AUTO) 7.4 K/uL (4.8-10.8)
[2024-09-29 10:18] LABS: INR 1.21 (0.85-1.15); PROTHROMBIN TIME 12.6 SEC (9.6-11.6)
[2024-09-29 10:20] LABS: PARTIAL THROMBOPLASTIN TIME 30.9 SEC (26.3-35.5)
[2024-09-29 10:22] LABS: BILIRUBIN,TOTAL 2.4 mg/dL (0.2-1.0); CREATININE 0.9 mg/dL (0.5-1.0); POTASSIUM 4.9 mmol/L (3.5-5.1); TOTAL PROTEIN, SERUM 6.7 g/dL (6.0-8.3)
--- NOTE | 2024-09-29 11:00 | NUR ---
U/S GD PARACENTESIS TOLERATED PROCEDURE. PERFORMED BY DR Matthew ARORA. PUNCTURE SITE TO RLQ. 3.5 LITER OF YELLOW CLOUDY FLUID REMOVED AND SENT TO LAB. END OF PROCEDURE AT 1040. NO BLEEDING TO SITE. DRESSING DRY AND INTACT. DISCHARGE VIA AMBULATORY. DENIES PAIN. A&O. DISCHARGE INSTRUCTIONS GIVEN.
--- NOTE | 2024-09-29 11:36 | HMCIMG ---
ULTRASOUND GUIDED PARACENTESIS: INDICATION: Ascites TECHNIQUE: Informed consent was obtained. Timeout performed. All elements of maximal sterile barrier technique, including hand hygiene and cutaneous antisepsis were used. Patient was placed supine. Right lower quadrant was prepped and draped in sterile fashion. Local anesthesia was applied. Then, under ultrasound guidance, a 5F centesis needle was advanced through the abdominal wall and into a pocket of fluid in the peritoneum. It yielded 3.5 L of fluid. The catheter was removed and sterile dressing applied. Blood pressure monitoring was performed during the procedure. Complications: None Blood loss: <5 mL. IMPRESSION: Successful ultrasound guided paracentesis.
[2024-09-29 11:52] LABS: PLATELET MORPHOLOGY COMMENT MARKED DECREASE
[2024-09-29 15:25] LABS: BODY FLUID RBC 106 /cu. mm.; BODY FLUID WBC 2704 /cu. mm.
[2024-09-29 15:26] LABS: APPEARANCE BODY FLUID CLOUDY (CLEAR); COLOR,BODY FLUID YELLOW (LT YELLOW); SPECIMENTYPE,BODY FLUID ASCITES; TOTAL VOLUME,BODY FLUID 3500 mL
[2024-09-29 15:45] LABS: BF EOSINOPHIL 1 %; BF LYMPHOCYTE 17 %; BF MONOCYTE 13 %; BF TOTAL CELLS COUNTED 100
== END | disposition home or self-care (01) ==
LOC: RAH 08:46
PROVIDERS: ATTEND Internal Medicine Gastroenterology
DX: R18.8 Other ascites (principal); K74.60 Unspecified cirrhosis of liver; Z79.899 Other long term (current) drug therapy
CPT/HCPCS: 49083; 80053; 85025; 89051; 85610; 85730; 36415; C1729

== ENCOUNTER → 2024-10-13 | Outpatient (CLI) | payer OTHER ==
--- NOTE | 2024-10-13 10:45 | NUR ---
U/S GUIDED PARACENTESIS PATIENT TOLERATED PROCEDURE. PERFORMED BY DR. Rayna RAMIREZ. PUNCTURE SITE TO RLQ. 3.6 LITERS OF YELLOW, CLOUDY FLUID REMOVED AND SENT TO LAB. END OF PROCEDURE AT 1030. NO BLEEDING TO SITE. DRESSING DRY AND INTACT. DISCHARGE VIA AMBULATORY. DENIES PAIN. A&O. DISCHARGE INSTRUCTIONS GIVEN.
--- NOTE | 2024-10-13 12:05 | HMCIMG ---
US ABDOMINAL PARACENTESIS IR HISTORY: Ascites COMPARISON: None TECHNIQUE: Informed consent was obtained. Risks and benefits were explained to the patient. A timeout was performed. Patient was prepped and draped in a sterile fashion. Local anesthetics was given as required. Under ultrasound guidance, ascites fluid was localized. Paracentesis was performed. FINDINGS: 3.8 L of yellowish fluid was aspirated. Less than 2 cc blood loss is noted. Patient tolerated procedure without complication. Patient left the department in good condition. IMPRESSION: 1. Uncomplicated ultrasound guidance paracentesis.
[2024-10-13 15:56] LABS: APPEARANCE BODY FLUID CLOUDY (CLEAR); COLOR,BODY FLUID YELLOW (LT YELLOW); SPECIMENTYPE,BODY FLUID ASCITES; TOTAL VOLUME,BODY FLUID 3600 mL
[2024-10-13 16:09] LABS: BODY FLUID RBC 209 /cu. mm.; BODY FLUID WBC 154 /cu. mm.
[2024-10-13 18:13] LABS: BF LYMPHOCYTE 47 %; BF MACROPHAGE 42; BF MONOCYTE 3 %; BF OTHER CELLS 2; BF TOTAL CELLS COUNTED 100
== END | disposition home or self-care (01) ==
LOC: RAH 09:11
PROVIDERS: ATTEND Internal Medicine Gastroenterology
DX: R18.8 Other ascites (principal); K74.60 Unspecified cirrhosis of liver; I85.10 Secondary esophageal varices without bleeding; I81 Portal vein thrombosis; D64.9 Anemia, unspecified; K21.00 Gastro-esophageal reflux disease with esophagitis, without bleeding; K57.30 Diverticulosis of large intestine without perforation or abscess without bleeding; K55.9 Vascular disorder of intestine, unspecified; E55.9 Vitamin D deficiency, unspecified; I10 Essential (primary) hypertension; E11.9 Type 2 diabetes mellitus without complications; E78.5 Hyperlipidemia, unspecified; F32.A Depression, unspecified; Z86.0100 Personal history of colon polyps, unspecified; E66.01 Morbid (severe) obesity due to excess calories; K72.90 Hepatic failure, unspecified without coma; Z68.34 Body mass index [BMI] 34.0-34.9, adult; Z79.899 Other long term (current) drug therapy
CPT/HCPCS: 49083; 89051; C1729

== ENCOUNTER → 2024-10-27 | Outpatient (CLI) | payer OTHER ==
[~2024-10-27] MED LIST changes: +ALBUMIN HUMAN 25% 200 ML IV ONE
--- NOTE | 2024-10-27 11:10 | NUR ---
U/S GD PARACENTESIS TOLERATED PROCEDURE. PERFORMED BY DR Darrian RAMIREZ. PUNCTURE SITE TO RLQ. 4.0 LITER OF YELLOW CLOUDY FLUID REMOVED AND SENT TO LAB. ALBUMIN 25% 50 GRAMS GIVEN IV. END OF PROCEDURE AT 1050. DRESSING DRY AND INTACT. NO BLEEDING NOTED. DISCHARGE INSTRUCTIONS GIVEN. VERBALIZED UNDERSTANDING. DISCHARGE VIA AMBULATORY. DENIES PAIN. A&O.
[2024-10-27] MEDS: ALBUMIN HUMAN 25% 200 ML IV ONE (11:31)
[2024-10-27 13:24] LABS: BODY FLUID RBC 583 /cu. mm.; BODY FLUID WBC 666 /cu. mm.
[2024-10-27 14:25] LABS: BF EOSINOPHIL 3 %; BF LYMPHOCYTE 68 %; BF MESOTHELIAL 8 %; BF MONOCYTE 2 %; BF TOTAL CELLS COUNTED 100
[2024-10-27 14:33] LABS: APPEARANCE BODY FLUID SLIGHTLY CLOUDY (CLEAR); COLOR,BODY FLUID LT YELLOW (LT YELLOW); SPECIMENTYPE,BODY FLUID ASCITES
--- NOTE | 2024-10-27 16:19 | HMCIMG ---
US ABDOMINAL PARACENTESIS IR HISTORY: No additional history given. COMPARISON: None TECHNIQUE: Informed consent was obtained. Risks and benefits were explained to the patient. A timeout was performed. Patient was prepped and draped in a sterile fashion. Local anesthetics was given as required. Under ultrasound guidance, ascites was localized. Paracentesis was performed. FINDINGS: Less than 2 cc blood loss is noted. Patient tolerated procedure without complication. Patient left the department in good condition. IMPRESSION: 1. Uncomplicated ultrasound-guided paracentesis.
== END | disposition home or self-care (01) ==
LOC: RAH 09:27
PROVIDERS: ATTEND Internal Medicine Gastroenterology
DX: R18.8 Other ascites (principal); K74.60 Unspecified cirrhosis of liver; I85.10 Secondary esophageal varices without bleeding; I81 Portal vein thrombosis; D64.9 Anemia, unspecified; K57.30 Diverticulosis of large intestine without perforation or abscess without bleeding; K55.9 Vascular disorder of intestine, unspecified; I10 Essential (primary) hypertension; E11.9 Type 2 diabetes mellitus without complications; E78.5 Hyperlipidemia, unspecified; F32.A Depression, unspecified; K72.90 Hepatic failure, unspecified without coma; E55.9 Vitamin D deficiency, unspecified; K21.00 Gastro-esophageal reflux disease with esophagitis, without bleeding; Z86.0100 Personal history of colon polyps, unspecified; Z68.34 Body mass index [BMI] 34.0-34.9, adult; Z79.899 Other long term (current) drug therapy
CPT/HCPCS: 49083; 89051; P9046; C1729; 96365

== ENCOUNTER 2024-11-10 11:20 | Observation (INO) | payer OTHER ==
[~2024-11-10] VITALS: Ht 152.4 cm; Wt 70.3 kg
[~2024-11-10 11:20] MED LIST changes: -FURO40TA5 PO; -SPIR100T5 PO
--- NOTE | 2024-11-10 11:31 | ERN ---
ED Note History of Present Illness Stated Complaint: BACK PAIN Chief Complaint: Altered Mental Status Time Seen by MD: 11:22 Dictation: PATIENT IS A 64-YEAR-OLD CIRRHOTIC FEMALE COMING IN TODAY WITH ALTERED MENTAL STATUS. SHE STATES SHE HAD PARACENTESIS THIS MORNING AT [place], WAS SENT TO THE EMERGENCY ROOM DUE TO ALTERED MENTAL STATUS AND BLUNTED THINKING. NO COMPLAINTS OF ABDOMINAL DISTENTION OR SOB AT THIS TIME. Allergies: Coded Allergies: No Known Drug Allergies (Unverified Allergy, Unknown, 05/30/23) Home Meds Reported Medications Insulin Degludec (Insulin Degludec Pen (U-100)) 100 Unit/Ml (3 Ml) Insuln.pen, 24 UNIT SQ DAILY, SYRINGE 08/13/24 Ferrous Sulfate (Iron) 325 Mg (65 Mg Iron) Tablet, 1 TAB PO DAILY for 30 Days, #30 TAB 0 Refills 08/13/24 Furosemide (Furosemide) 20 Mg Tablet, 1 TAB PO DAILY for 30 Days, #30 TAB 0 Refills 08/13/24 Lisinopril (Lisinopril) 5 Mg Tablet, 1 TAB PO DAILY for 30 Days, #30 TAB 0 Refills 08/13/24 Spironolactone (Spironolactone) 50 Mg Tablet, 1 TAB PO DAILY for 30 Days, #30 TAB 0 Refills 08/13/24 Omeprazole (Omeprazole) 40 Mg Capsule.dr, 1 CAP PO DAILY for 30 Days, #30 CAP 0 Refills 08/13/24 Propranolol HCl (Propranolol HCl) 10 Mg Tablet, 1 TAB PO BID for 30 Days, #60 TAB 0 Refills 08/13/24 Past Medical History Past Medical History: Diabetes-Type II, Hypertension, Liver Disease, Other Additional Past Medical Hx: LIVER CIRRHOSIS Surgical History: Hysterectomy History: Not Applicable RN Note Reviewed/Agreed w/PFSH: Yes Review of System Dictation CONSTITUTIONAL: NEGATIVE EXCEPT FOR HPI HEAD/FACE: NEGATIVE EXCEPT FOR HPI EENT: NEGATIVE EXCEPT FOR HPI RESPIRATORY: NEGATIVE EXCEPT FOR HPI GASTROINTESTINAL/ABDOMINAL: NEGATIVE EXCEPT FOR HPI GENITOURINARY: NEGATIVE EXCEPT FOR HPI MUSCULOSKELETAL: NEGATIVE EXCEPT FOR HPI INTEGUMENTARY: NEGATIVE EXCEPT FOR HPI NEUROLOGICAL/PSYCH: NEGATIVE EXCEPT FOR HPI ALTERED MENTAL STATUS HEMATOLOGIC/LYMPHATIC: NEGATIVE EXCEPT FOR HPI ALL SYSTEMS NEGATIVE, EXCEPT NOTED ABOVE. 13 POINT REVIEW OF SYSTEMS ASSESSED AND ALL NEGATIVE EXCEPT FOR ABOVE. Initial Vital Sign VS Vital Signs Date Time Temp Pulse Resp B/P (MAP) Pulse Ox O2 Delivery O2 Flow Rate FiO2 11/10/24 11:29 97.9 70 16 146/62 98 Room Air 0 11/10/24 11:53 21 Physical Exam Dictation VITAL SIGNS REVIEWED GENERAL APPEARANCE: ALERT, ORIENTED X 3, NO ACUTE DISTRESS, WELL DEVELOPED, NOURISHED. HEAD AND FACE: NON-TRAUMATIC. EYES: PERRL, TEAR CONJUNCTIVAS, EYELID NO TRAUMA, ANTERIOR CHAMBER WITH ARCUS SENILIS. EARS: PINNAS INTACT AND NO SIGNS OF TRAUMA OR ERYTHEMA EAR CANALS CLEAR AND NO DISCHARGE TM NO ERYTHEMA NOSE: NO DISCHARGE, NO BLEEDING. OROPHARYNX: MOUTH NORMAL, TONGUE PINK, PHARYNX CLEAR,NO ERYTHEMA, TONSILS NO EXUDATES, NO ABSCESSES NOTED, MUCOUS MEMBRANE MOIST NECK: SUPPLE, NON-TENDER, NO THYROMEGALY, NO MASSES, NO JVD, NO BRUITS BREAST:DEFERRED CHEST:NO TENDERNESS, NO CREPITUS, NO PARADOXICAL MOVEMENT, NO RETRACTIONS LUNGS:CLEAR, WELL-VENTILATED, SYMMETRIC, NO RALES, NO WHEEZING, NO RHONCHI, NO STRIDOR, GOOD BREATH SOUNDS BILATERALLY HEART: REGULAR RATE, REGULAR RHYTHM, NO MURMUR, NO GALLOPS VASCULAR: NO PERIPHERAL EDEMA, ABDOMEN: SOFT, POSITIVE BOWEL SOUNDS, NONDISTENDED, NO GUARDING, NONTENDER, NO REBOUND, NO MASSES NO HEPATOMEGALY, NO SPLENOMEGALY, NO WEEKS'S SIGN, NO HERNIAS. RECTAL: DEFERRED GENITAL: DEFERRED NEUROLOGICAL: NORMAL SPEECH, MOTOR FUNCTION INTACT, SPEECH IS CLEAR, MENTATION IS BLUNTED. MUSCULOSKELETAL: NECK NONTENDER, FULL RANGE OF MOTION, BACK NONTENDER, FULL RANGE OF MOTION, EXTREMITIES: NONTENDER, FULL RANGE OF MOTION SKIN: COLOR PINK, DRY, NO TURGOR, NO RASH, NO LACERATIONS, NO ABRASIONS, NO CONTUSIONS. LYMPHATIC: DEFERRED Results (Laboratory/Radiology) Laboratory/Radiology Laboratory Tests Test 11/10/24 11:48 White Blood Count 6.0 K/uL (4.8-10.8) Red Blood Count 3.14 MIL/uL (4.00-5.50) L Hemoglobin 9.8 g/dL (12.0-16.0) L Hematocrit 28.2 % (36-48) L Mean Corpuscular Volume 89.8 fL (79-99) Mean Corpuscular Hemoglobin 31.2 pg (27.0-33.0) Mean Corpuscular Hemoglobin Concent 34.8 g/dL (32.0-36.0) Red Cell Distribution Width 14.1 % (11.0-15.5) Platelet Count 56 K/uL (130-400) L Mean Platelet Volume 11.8 fL (7.5-10.5) H Immature Granulocyte % (Auto) 0.7 % (0-1) Neutrophils (%) (Auto) 69.6 % (40.0-77.0) Lymphocytes (%) (Auto) 9.6 % (21.0-51.0) L Monocytes (%) (Auto) 8.1 % (3.0-13.0) Eosinophils (%) (Auto) 11.5 % (0.0-8.0) H Basophils (%) (Auto) 0.5 % (0.0-5.0) Neutrophils # (Auto) 4.2 K/uL (1.8-7.7) Lymphocytes # (Auto) 0.6 K/uL (1.0-4.8) L Monocytes # (Auto) 0.5 K/uL (0.1-1.0) Eosinophils # (Auto) 0.69 K/uL (0.00-0.70) Basophils # (Auto) 0.03 K/uL (0.00-0.20) Absolute Immature Granulocyte (auto 0.04 K/uL (0-1) Nucleated Red Blood Cells 0.0 % (0.0-0.19) White Cell Morphology Comment See comments Platelet Morphology Comment See comments Sodium Level 137 mmol/L (136-145) Potassium Level 4.6 mmol/L (3.5-5.1) Chloride Level 104 mmol/L (101-111) Carbon Dioxide Level 23 mmol/L (21-32) Blood Urea Nitrogen 28 mg/dL (7-18) H Creatinine 1.3 mg/dL (0.5-1.0) H Glomerular Filtration Rate Calc 46 mL/min (>90) Random Glucose 294 mg/dL (70-105) H Total Calcium 9.7 mg/dL (8.5-10.1) Ammonia 235 umol/L (11-32) *H Troponin I High Sensitivity 38 ng/L (4-50) Labs Reviewed?: Yes EKG: (+) NSR EKG Comment: EKG NORMAL SINUS RHYTHM/HEART RATE 72/AXIS NORMAL/NO ECTOPY ED Course ED Course Orders Procedure Category Date Status Time Ammonia LAB 11/10/24 Complete 11:29 Cbc With Differential LAB 11/10/24 Complete 11:29 Troponin I High LAB 11/10/24 Complete Sensitivity 11:29 12 Lead Ekg Tracing- EKG 11/10/24 Logged Technical 11:29 Chest 1vw RAD 11/10/24 Resulted 11:29 Basic Metabolic Panel LAB 11/10/24 Complete 11:29 Lactulose 20 Gm/30 Ml PHA 11/10/24 Complete Udcup (Constulose 12:30 Lactulose 20 Gm/30 Ml PHA 11/10/24 Complete Udcup (Constulose 13:00 0.9%Nacl 1000ml (Ns PHA 11/10/24 Complete 1000ml) 13:30 Edm Admit Bridge Order ADM 11/10/24 Transmitted 14:43 Diphenhydramine Hcl PHA 11/10/24 In Process (Benadryl Cap) 15:00 Diphenhydramine Hcl PHA 11/10/24 In Process (Benadryl Inj) 15:00 Acetaminophen 325 Tab PHA 11/10/24 In Process (Tylenol 325mg Tab 15:00 Acetaminophen 325 Tab PHA 11/10/24 In Process (Tylenol 325mg Tab 15:00 Ondansetron 4mg Inj PHA 11/10/24 In Process (Zofran 4mg Inj) 15:00 Zolpidem Tartrate 5 PHA 11/10/24 In Process Mg Tab (Ambien) 15:00 Mag/Alum/Simeth 30ml PHA 11/10/24 In Process (Maalox Plus 30ml) 15:00 Lactulose 20 Gm/30 Ml PHA 11/10/24 In Process Udcup (Constulose 22:00 Guaifenesin-Dm PHA 11/10/24 In Process 200/20mg 10ml 15:00 Comprehensive LAB 11/11/24 Verified Metabolic Panel 04:00 Pt Eval And Treat PT 11/10/24 Transmitted 14:50 Guaifenesin Sug-Neal PHA 11/10/24 In Process 100 Mg/5ml (Robituss 15:00 Loperamide Hcl 2 Mg PHA 11/10/24 In Process Cap (Imodium) 15:00 Docusate Sodium 100 PHA 11/10/24 In Process Mg Cap (Colace 100mg 15:00 Polyethylene Glycol PHA 11/10/24 In Process 3350 (Miralax 3350 1 15:00 Alprazolam 0.5mg PHA 11/10/24 In Process (Xanax 0.5mg) 15:00 Admit Orders ADM 11/10/24 Transmitted 14:50 Activity: Bed Rest CPOE 11/10/24 Transmitted 14:50 Regular DIET 11/10/24 Transmitted Dinner Initiate HEIDE 11/10/24 In Process Hyperglycemia Protoco 14:50 Cbc Without LAB 11/11/24 Verified Differential 04:00 Ammonia LAB 11/11/24 Verified 04:00 Vital Signs Date Time Temp Pulse Resp B/P (MAP) Pulse Ox O2 Delivery O2 Flow Rate FiO2 11/10/24 16:13 97.9 72 16 123/39 98 Room Air* 0 11/10/24 15:24 97.9 70 16 134/45 98 Room Air* 0 11/10/24 13:28 77 16 127/73 98 Room Air* 0 11/10/24 11:53 97.5 79 16 118/52 Room Air* 0 11/10/24 11:29 97.9 70 16 146/62 98 Room Air 0 1320/PATIENT HAS AMMONIA LEVEL 235. ADDITIONALLY SHE HAS A AN ACUTE ON CHRONIC KIDNEY INJURY AND UNCONTROLLED DIABETES WE WILL BE GIVEN LACTULOSE,1 L NORMAL SALINE A PATIENT WILL BE ADMITTED TO THE HOSPITAL. 1440/Jerry SIDE PANEL [employer]ANGER hospitalist here and reviewed labs to include ammonia level and interventions for encephalopathy he agreed to admit HEART Score Response (Comments) Value History: Low suspicion (0) 0 Age: 45-65yrs (+1) 1 Risk Factors: 1-2 risk factors (+1) 1 Initial Troponin: Normal limit (0) 0 Total 2 Medical Decision Making MDM MDM: DIFFERENTIAL DIAGNOSIS: ENCEPHALOPATHY/ELEVATED AMMONIA/ELECTROLYTE IMBALANCE/DEHYDRATION/ RATIONALE: TESTS CONSIDERED AND ORDERED SECONDARY TO SHARED DECISION MAKING INCLUDE: LABS, ECG AND RADIOLOGY PREVIOUS OUTSIDE RECORDS REVIEWED: OLD ER VISITS. RISK OF COMPLICATION AND/OR MORBIDITY OR MORTALITY OF PATIENT MANAGEMENT: NONE MEDICATIONS-PER MEDICATION RECONCILIATION NEED FOR HOSPITALIZATION: PATIENT DOES MEET CRITERIA FOR HOSPITALIZATION. PATIENT WILL NEED BE ADMITTED FOR FLUID RESUSCITATION, NEPHROLOGY CONSULTATION. NEED FOR EMERGENCY MAJOR/MINOR SURGERY: NO THERE ARE NO SOCIAL CONCERNS WITH THIS PATIENT. PRESCRIPTION DRUG MANAGEMENT PRESCRIPTIONS WILL INCLUDE SYMPTOMATIC CARE PATIENT'S PRIOR EXTERNAL MEDICAL RECORDS FROM OTHER ER VISITS WERE REVIEWED BY ME INDICATED. PRIOR TESTING AND RESULTS FROM PREVIOUS VISITS WERE REVIEWED. PRIOR TESTS WERE TAKEN INTO ACCOUNT WITH MEDICAL DECISION MAKING AND RESOURCE UTILIZATION, INDEPENDENT HISTORIAN/HISTORIANS WERE USED TO OBTAIN COMPLETE MEDICAL HISTORY. I INDEPENDENTLY INTERPRETED THE TEST THAT WERE PERFORMED, RESULTS WERE REVIEWED BY ME AND CONSIDERED FINDINGS ON RADIOLOGY IF ORDERED. MEDICAL MANAGEMENT AND EXAMINATION INTERPRETATION DISCUSSIONS WERE HAD BY ME WITH OTHER QUALIFIED HEALTHCARE PROFESSIONALS INDICATED FOR THE PATIENT'S CARE. DX & DISP Disposition: Inpatient Departure Impression: Primary Impression: Hepatic encephalopathy Additional Impressions: [id number] kidney injury, Uncontrolled diabetes mellitus, Chronic anemia, Cirrhosis Condition: Stable Referrals: KARLEE MARKHAM M.D. (PCP) Time of Disposition: 13:26 I have reviewed the case, and I agree with, Diagnosis and Plan I performed the substantive portion of the visit. I have reviewed and personally made and approve the management plan that is documented in the notes by myself or the [facility]. I acknowledge full responsibility for the patient's management plan. BARBARA NAYAK NP Nov 10, 2024 11:31 FABRICIO MOURA MD Nov 10, 2024 18:36
[2024-11-10 11:58] LABS: BASOPHILS # (AUTO) 0.03 K/uL (0.00-0.20); BASOPHILS % (AUTO) 0.5 % (0.0-5.0); EOSINOPHILS # (AUTO) 0.69 K/uL (0.00-0.70); EOSINOPHILS % (AUTO) 11.5 % (0.0-8.0); HEMATOCRIT 28.2 % (36-48); IMMATURE GRANULOCYTE ABSOLUTE 0.04 K/uL (0-1); LYMPHOCYTES # (AUTO) 0.6 K/uL (1.0-4.8); LYMPHOCYTES % (AUTO) 9.6 % (21.0-51.0); MEAN CORPUSCULAR HEMOGLOBIN 31.2 pg (27.0-33.0); MEAN CORPUSCULAR HGB CONC 34.8 g/dL (32.0-36.0); MEAN CORPUSCULAR VOLUME 89.8 fL (79-99); MONOCYTES # (AUTO) 0.5 K/uL (0.1-1.0); MONOCYTES % (AUTO) 8.1 % (3.0-13.0); NEUTROPHILS # (AUTO) 4.2 K/uL (1.8-7.7); NEUTROPHILS % (AUTO) 69.6 % (40.0-77.0); PLATELET COUNT (AUTO) 56 K/uL (130-400); RED BLOOD CELL COUNT(AUTO) 3.14 MIL/uL (4.00-5.50); RED CELL DISTRIBUTION WIDTH 14.1 % (11.0-15.5)
--- NOTE | 2024-11-10 12:06 | NUR ---
PT PRESENTS TO THE ED DUE TO ALTERED MENTAL STATUS. PATIENTS STATES CONFUSION BEGAN 11/09/2024 AND RECIEVED PARACENTESIS 11/10/2024 AT AROUND 9 AM. STATES HE DECIDED TO BRING HER INTO ED AFTER PARACENTESIS. DENIES PAIN AT THIS TIME. ALERT AND ORIENTED TO TIME, PLACE AND PERSON BUT SLOW IN RESPONSE TIME.
[2024-11-10 12:14] LABS: CREATININE 1.3 mg/dL (0.5-1.0); POTASSIUM 4.6 mmol/L (3.5-5.1)
--- NOTE | 2024-11-10 12:38 | HMCIMG ---
CHEST 1VW HISTORY: Shortness of breath COMPARISON: 08/19/2024 FINDINGS: A frontal projection of the chest was obtained. Multiple bilateral pulmonary infiltrates are seen in the right pleural effusion slightly worse from previous study mild. The heart is borderline enlarged. Degenerative changes are seen. No evidence of aortic calcification is seen. IMPRESSION: 1. Mild bilateral pulmonary infiltrates is seen in the right pleural effusion.
[2024-11-10] MEDS: LACTULOSE 20 GM/30 ML UDCUP PO ONE ×2 (12:41→13:26)
[2024-11-10] MEDS: 0.9%NACL 1000ML 1,000 ML IV ONE (13:28)
--- NOTE | 2024-11-10 14:53 | HP ---
[facility] HISTORY & PHYSICAL Date Patient Seen: Nov 10, 2024 Time of Visit: 14:53 Supervising Physician: Dr. Ciaran Daniels Primary Care Physician: Dr. Judy Nelson Outpatient Specialists: [ ] Inpatient Consults: [ ] PROBLEM LIST: Hepatic encephalopathy hyperammonemia uncontrolled diabetes mellitus, chronic anemia, liver cirrhosis, hypertension HPI: Patient was a 64-year-old female with a past medical history significant for uncontrolled diabetes mellitus, chronic anemia, liver cirrhosis, and hypertension who was here at [facility] for a scheduled paracentesis in which 3 L of ascites fluid was removed, however following the procedure the patient was sent to the emergency room for altered mental status, encephalopathy, blunted thinking. On initial evaluation patient's chemistry returned with an ammonia level of 235, patient's family endorsed that the patient was noncompliant with her lactulose at home. During her stay in the emergency room patient was given a total of 40 g of lactulose, and is being admitted for observation and continue lactulose and monitoring of her ammonia levels. Lactulose was ordered around the clock, morning ammonia levels will be reassessed. Patient during physical exam has some mild abdominal distention but no fluid wave, she is able to answer questions somewhat appropriately however there is some clear encephalopathy on exam. Patient's family was updated with the current treatment plan and we will continue to monitor her progress over the course of the admission. PAST MEDICAL HX: see above PAST SURGICAL HX: noncontributory SOCIAL HISTORY: No tobacco, ETOH, or illicit drug use Coded Allergies: No Known Drug Allergies (Unverified Allergy, Unknown, 05/30/23) REVIEW OF SYSTEMS: 12 point ROS reviewed with patient. Pertinent positives mentioned above. Otherwise negative. PHYSICAL EXAM: GENERAL: alert, weak, awake oriented x 3 HEENT: EOMI, Sclera non icteric, moist mucosa NECK: Supple, no JVD, trachea midline LUNGS: Clear breath sounds bilaterally. No wheezes HEART: Regular rate and rhythm. Normal S1 and S2, without murmurs ABD: Abdomen soft, nontender. Bowel sounds present EXT: No clubbing cyanosis or edema NEURO: Alert and oriented to person, follows commands Vital Signs (last 8hr) Date Time Temp Pulse Resp B/P (MAP) Pulse Ox O2 Delivery O2 Flow Rate FiO2 11/10/24 13:28 77 16 127/73 98 Room Air* 0 21 11/10/24 11:53 97.5 79 16 118/52 Room Air* 0 21 11/10/24 11:29 97.9 70 16 146/62 98 Room Air 0 LABS: Hematology Labs: Test 11/10/24 11:48 Range/Units White Blood Count 6.0 4.8-10.8 K/uL Red Blood Count 3.14 L 4.00-5.50 MIL/uL Hemoglobin 9.8 L 12.0-16.0 g/dL Hematocrit 28.2 L 36-48 % Mean Corpuscular Volume 89.8 79-99 fL Mean Corpuscular Hemoglobin 31.2 27.0-33.0 pg Mean Corpuscular Hemoglobin Concent 34.8 32.0-36.0 g/dL Red Cell Distribution Width 14.1 11.0-15.5 % Platelet Count 56 L 130-400 K/uL Mean Platelet Volume 11.8 H 7.5-10.5 fL Immature Granulocyte % (Auto) 0.7 0-1 % Neutrophils (%) (Auto) 69.6 40.0-77.0 % Lymphocytes (%) (Auto) 9.6 L 21.0-51.0 % Monocytes (%) (Auto) 8.1 3.0-13.0 % Eosinophils (%) (Auto) 11.5 H 0.0-8.0 % Basophils (%) (Auto) 0.5 0.0-5.0 % Neutrophils # (Auto) 4.2 1.8-7.7 K/uL Lymphocytes # (Auto) 0.6 L 1.0-4.8 K/uL Monocytes # (Auto) 0.5 0.1-1.0 K/uL Eosinophils # (Auto) 0.69 0.00-0.70 K/uL Basophils # (Auto) 0.03 0.00-0.20 K/uL Absolute Immature Granulocyte (auto 0.04 0-1 K/uL Nucleated Red Blood Cells 0.0 0.0-0.19 % White Cell Morphology Comment See comments Platelet Morphology Comment See comments Chemistry Labs: Test 11/10/24 11:48 Range/Units Sodium Level 137 136-145 mmol/L Potassium Level 4.6 3.5-5.1 mmol/L Chloride Level 104 101-111 mmol/L Carbon Dioxide Level 23 21-32 mmol/L Blood Urea Nitrogen 28 H 7-18 mg/dL Creatinine 1.3 H 0.5-1.0 mg/dL Glomerular Filtration Rate Calc 46 >90 mL/min Random Glucose 294 H 70-105 mg/dL Total Calcium 9.7 8.5-10.1 mg/dL Ammonia 235 *H 11-32 umol/L Troponin I High Sensitivity 38 4-50 ng/L DIAGNOSTICS / RADIOLOGY RESULTS: [ ] PLAN NEURO: Minimize central acting medications as possible. Maintain fall precautions, adequate lighting during the day PULMONARY: Supplemental 02 as needed. Maintain aspiration precautions at all times CARDIOVASCULAR: Follow hemodynamics. Vital signs per facility protocol GI & NUTRITION: Continue with nutritional support. Continue stool softeners and laxatives as needed. KIDNEYS & ELECTROLYTES: Strict monitoring of intake, output and overall fluid balance. Avoid nephrotoxic medications to the extent possible. Medications to be dosed according to renal function. Monitor electrolytes and replace as needed ENDOCRINE: Maintain blood glucose between 100-180 at all times. Hypoglycemia protocol in place INFECTIOUS DISEASE: Trend temperature, WBC and procalcitonin level Follow cultures, deescalate antibiotics as soon as possible. Panculture if new onset fever ONCOLOGY/HEMATOLOGY/COAGULATION: Monitor for s/s of bleeding Monitor hemoglobin, coagulation studies as needed SKIN: Pressure ulcer prevention per facility protocol Specialty mattress ORTHO/REHAB: Continue PT/OT Prophylaxis: Continue GI and DVT prophylaxis Code Status: Full Resuscitation Disposition: TBD Other: Total patient care time exceeds 35 minutes excluding all procedures. SAUNDRA HAYNES Nov 10, 2024 14:53
[2024-11-10] MEDS ORDERED: acetaMINOPHEN 325 MG TAB PO PRN ×2 (15:00)
[2024-11-10] MEDS ORDERED: DiphenhydrAMINE HCL 50 MG/ML VIAL IV PRN (15:00)
[2024-11-10] MEDS ORDERED: doCUSate SODIUM 100 MG CAP PO PRN (15:00)
[2024-11-10] MEDS ORDERED: guaiFENesin-DM 200/20MG 10ML PO PRN (15:00)
[2024-11-10] MEDS ORDERED: polyETHYLene GLYCol 3350 17 GM POWD.PACK PO PRN (15:00)
[2024-11-10] MEDS ORDERED: MAG/ALUM/SIMETH 30 ML UDCUP PO PRN (15:00)
[2024-11-10] MEDS ORDERED: LOPERAMIDE HCL 2 MG CAP PO PRN (15:00)
[2024-11-10] MEDS ORDERED: ALPRAZolam 0.5 MG TABLET PO PRN (15:00)
[2024-11-10] MEDS ORDERED: guaiFENesin SUGAR-FREE 100 MG/5 ML UDCUP PO PRN (15:00)
[2024-11-10] MEDS ORDERED: DiphenhydrAMINE HCL 25 MG CAPSULE PO PRN (15:00)
[2024-11-10] MEDS ORDERED: ondanSETRON 4MG INJ IV PRN (15:00)
[2024-11-10] MEDS ORDERED: ZOLPidem TARTrate 5 MG TAB PO PRN (15:00)
--- NOTE | 2024-11-10 18:25 | NUR ---
PATIENT ARRIVED TO UNIT FROM ER
[2024-11-10 18:44] VITALS: BP 158/77; PULSE 72; RESP 17; TEMP 97.9
[2024-11-10 19:42] VITALS: O2SAT 100
[2024-11-10] MEDS: RIFAXIMIN 550 MG TABLET PO SCH (20:47)
[2024-11-10] MEDS: LACTULOSE 20 GM/30 ML UDCUP PO SCH (21:50)
[2024-11-10] MEDS ORDERED: INSU100I72 SQ (22:31)
[2024-11-10] MEDS ORDERED: SPIR100T5 PO (22:31)
[2024-11-10] MEDS ORDERED: FURO40TA5 PO (22:31)
[2024-11-11 00:21] VITALS: BP 120/46; PULSE 69; RESP 17; TEMP 97.7
[2024-11-11 04:13] LABS: HEMATOCRIT 26.2 % (36-48); MEAN CORPUSCULAR HEMOGLOBIN 30.6 pg (27.0-33.0); RED BLOOD CELL COUNT(AUTO) 2.91 MIL/uL (4.00-5.50); RED CELL DISTRIBUTION WIDTH 14.3 % (11.0-15.5); WHITE BLOOD COUNT (AUTO) 4.2 K/uL (4.8-10.8)
[2024-11-11 04:22] LABS: CREATININE 1.1 mg/dL (0.5-1.0); POTASSIUM 3.7 mmol/L (3.5-5.1)
[2024-11-11 04:25] LABS: ALBUMIN 2.6 g/dL (3.5-5.0)
[2024-11-11] MEDS: ALBUMIN (HUMAN) 25% 50 ML IV SCH (04:50)
[2024-11-11 04:52] VITALS: BP 107/46; PULSE 68; RESP 16; TEMP 98
[2024-11-11] MEDS: INSULIN humuLIN R 100 UNIT/ML 3ML SQ SCH (06:11)
--- NOTE | 2024-11-11 07:04 | EKG ---
[facility] Test Date: 2024-11-10 Test Time: 12:05:38 Pat Name: EVELIN CH Department: [facility] Room: 331 1 Gender: F [place] [employer] Supervisor: [id number] : 1960 Requested By: BARBARA NAYAK Order Number: [id number] Reading MD: Travis Light Measurements Intervals [place] Rate: 72 P: 17 AR: 157 QRS: 12 QRSD: 96 T: -4 QT: 423 QTc: 463 Interpretive Statements Sinus rhythm Compared to ECG 08/13/2024 17:44:54 No significant changes Electronically Signed On 11-13-2024 15:01:24 CDT by Travis Light Please click the below link to view image of tracing.
[2024-11-11 08:00] VITALS: O2SAT 98
[2024-11-11 08:02] VITALS: BP 137/53; PULSE 70; RESP 17; TEMP 98.3
[2024-11-11 11:59] VITALS: BP 140/70; PULSE 74; RESP 17; TEMP 98.1
--- NOTE | 2024-11-11 12:20 | NUR ---
DCP: home Pt currently lives with sps Ralph Cali [phone]. Pt previously received $184 in [employer] benefits however benefits stopped this past month due to her not renewing application on time. pt stated that she already sent in the renewal and is waiting on a call for the interview. Pt denied having a provider however a "woman" goes to her home to help her with bathing and housekeeping. Pt denied currently having DME however states that it "would be good to have something". At [place] pt will go home and sps will help with transportation. Addendum: 11/11/24 at 1223 by ANUEL PABLO SS Amended: Links added.
--- NOTE | 2024-11-11 15:05 | DS ---
[facility] DISCHARGE SUMMARY Date Patient Seen: Nov 11, 2024 Time of Visit: 15:05 Supervising Physician: Dr. Ciaran Daniels Primary Care Physician: Dr. Judy Nelson Outpatient Specialists: [ ] Inpatient Consults: [ ] HOSPITAL COURSE: HPI (per admitting provider) Patient was a 64-year-old female with a past medical history significant for uncontrolled diabetes mellitus, chronic anemia, liver cirrhosis, and hypertension who was here at [facility] for a scheduled paracentesis in which 3 L of ascites fluid was removed, however following the procedure the patient was sent to the emergency room for altered mental status, encephalopathy, blunted thinking. On initial evaluation patient's chemistry returned with an ammonia level of 235, patient's family endorsed that the patient was noncompliant with her lactulose at home. During her stay in the emergency room patient was given a total of 40 g of lactulose, and is being admitted for observation and continue lactulose and monitoring of her ammonia levels. Lactulose was ordered around the clock, morning ammonia levels will be reassessed. Patient during physical exam has some mild abdominal distention but no fluid wave, she is able to answer questions somewhat appropriately however there is some clear encephalopathy on exam. Patient's family was updated with the current treatment plan and we will continue to monitor her progress over the course of the admission. The patient was treated for the following problems: Patient's encephalopathy has resolved upon discharge, patient was advised to con tinue with the lactulose therapy at home, ammonia has decreased throughout the admission. Advised to follow up with PCP upon discharge. ACTIVE PROBLEM LIST FOR THE HOSPITALIZATION: Hepatic encephalopathy hyperammonemia CHRONIC PROBLEMS: continue previous management per PCP unless otherwise indicated uncontrolled diabetes mellitus, chronic anemia, liver cirrhosis, hypertension [employer] FINDINGS/RECOMMENDATIONS: [ ] PROCEDURES: as mentioned above DISCHARGE MEDICATIONS: Pt hemodynamically stable and afebrile at time of discharge. PCP notified of patients admission, hospital course and discharge. PHYSICAL EXAM: GENERAL: alert, weak, awake oriented x 3 HEENT: EOMI, Sclera non icteric, moist mucosa NECK: Supple, no JVD, trachea midline LUNGS: Clear breath sounds bilaterally. No wheezes HEART: Regular rate and rhythm. Normal S1 and S2, without murmurs ABD: Abdomen soft, nontender. Bowel sounds present EXT: No clubbing cyanosis or edema NEURO: Alert and oriented to person, follows commands FOLLOW-UP: Follow-up with PCP in 2-3 days RECOMMENDATIONS: See Discharge Instructions This case was seen and discussed with my supervising physician. More than 30 minutes spent on discharge process, including evaluation of the patient, discussion with nursing staff, medication reconciliation and follow-up appointments SAUNDRA HAYNES Nov 11, 2024 15:05
[2024-11-11 16:00] VITALS: BP 127/67; PULSE 71; RESP 18; TEMP 98.5
--- NOTE | 2024-11-11 16:43 | NUR ---
DISCHARGE NOTE IV and ID band removed. Discharge orders, instructions, and follow up appointments read to patient. Paper copy provided. Personal belongings packed. Patient pending on ride to pick her up from hospital. Will wheel down via wheelchair to personal vehicle once family has arrived.
[2024-11-11] MEDS ORDERED: PROPRANOLOL HCL 10 MG TAB PO SCH (21:00)
[2024-11-11] MEDS ORDERED: DIPHENOXYLATE HCL/ATROPINE 2.5/0.025 MG TAB PO ONE (21:00)
[2024-11-12] MEDS ORDERED: furoSEMIDE 40 MG TABLET PO SCH (09:00)
[2024-11-12] MEDS ORDERED: LISINOPRIL 5 MG TABLET PO SCH (09:00)
[2024-11-12] MEDS ORDERED: PANTOPrazole 40 MG TAB DR PO SCH (09:00)
== END 2024-11-11 18:20 | disposition home or self-care (01) ==
LOC: EDH 11:20 → EDHIP 11:21 → 3AH 18:26
PROVIDERS: ADMIT Internal Medicine; ATTEND Internal Medicine
DX: K76.82 Hepatic encephalopathy (principal); E72.20 Disorder of urea cycle metabolism, unspecified; E11.65 Type 2 diabetes mellitus with hyperglycemia; K74.60 Unspecified cirrhosis of liver; I12.9 Hypertensive chronic kidney disease with stage 1 through stage 4 chronic kidney disease, or unspecified chronic kidney disease; E11.22 Type 2 diabetes mellitus with diabetic chronic kidney disease; N18.9 Chronic kidney disease, unspecified; N17.9 Acute kidney failure, unspecified; D63.8 Anemia in other chronic diseases classified elsewhere; Z91.199 Patient's noncompliance with other medical treatment and regimen due to unspecified reason; Z79.1 Long term (current) use of non-steroidal anti-inflammatories (NSAID); Z90.710 Acquired absence of both cervix and uterus; Z79.899 Other long term (current) drug therapy
CPT/HCPCS: 96361; 96365; 93005; 99285; 84484; 80053 ×2; 82140 ×3; 85025 ×2; 89051; 85610; 85730; 36415 ×2; 71045; 49083; 85027; 82948 ×3; 97161; 97116; 97530 ×2; G0378 ×26; A4600; J7030; C1729; J1815 ×3; P9047; 80048

== ENCOUNTER → 2024-11-10 | Outpatient (CLI) | payer OTHER ==
[~2024-11-10] MED LIST changes: -ALBUMIN HUMAN 25% 200 ML IV ONE; +FURO40TA5 PO; +SPIR100T5 PO
--- NOTE | 2024-11-10 10:50 | NUR ---
U/S GD PARACENTESIS TOLERATED PROCEDURE. PERFORMED BY DR Darrian RAMIREZ. PUNCTURE SITE TO RLQ. 3.0 LITERS OF YELLOW CLOUDY FLUID REMOVED AND SENT TO LAB. END OF PROCEDURE AT 1030. DRESSING DRY AND INTACT. NO BLEEDING NOTED. DISCHARGE INSTRUCTIONS GIVEN. VERBALIZED UNDERSTANDING. DISCHARGE VIA AMBULATORY WITH SPOUSE. DENIES PAIN. A&O.
[2024-11-10 13:34] LABS: BASOPHILS # (AUTO) 0.03 K/uL (0.00-0.20); BASOPHILS % (AUTO) 0.5 % (0.0-5.0); EOSINOPHILS # (AUTO) 0.62 K/uL (0.00-0.70); EOSINOPHILS % (AUTO) 10.7 % (0.0-8.0); HEMATOCRIT 28.9 % (36-48); IMMATURE GRANULOCYTE ABSOLUTE 0.03 K/uL (0-1); LYMPHOCYTES # (AUTO) 0.5 K/uL (1.0-4.8); LYMPHOCYTES % (AUTO) 8.6 % (21.0-51.0); MEAN CORPUSCULAR HGB CONC 34.3 g/dL (32.0-36.0); MEAN CORPUSCULAR VOLUME 90.6 fL (79-99); MONOCYTES # (AUTO) 0.6 K/uL (0.1-1.0); MONOCYTES % (AUTO) 9.7 % (3.0-13.0); NEUTROPHILS # (AUTO) 4.1 K/uL (1.8-7.7); PLATELET COUNT (AUTO) 50 K/uL (130-400); RED BLOOD CELL COUNT(AUTO) 3.19 MIL/uL (4.00-5.50); RED CELL DISTRIBUTION WIDTH 14.1 % (11.0-15.5); WHITE BLOOD COUNT (AUTO) 5.8 K/uL (4.8-10.8)
[2024-11-10 13:37] LABS: APPEARANCE BODY FLUID CLOUDY (CLEAR); COLOR,BODY FLUID YELLOW (LT YELLOW); SPECIMENTYPE,BODY FLUID ASCITES; TOTAL VOLUME,BODY FLUID 3000 mL
[2024-11-10 13:39] LABS: INR 1.12 (0.85-1.15); PROTHROMBIN TIME 11.7 SEC (9.6-11.6)
[2024-11-10 13:41] LABS: PARTIAL THROMBOPLASTIN TIME 28.5 SEC (26.3-35.5)
[2024-11-10 13:42] LABS: BILIRUBIN,TOTAL 1.5 mg/dL (0.2-1.0); CREATININE 1.3 mg/dL (0.5-1.0); POTASSIUM 4.4 mmol/L (3.5-5.1); TOTAL PROTEIN, SERUM 6.7 g/dL (6.0-8.3)
[2024-11-10 13:43] LABS: BODY FLUID RBC 296 /cu. mm.; BODY FLUID WBC 241 /cu. mm.
[2024-11-10 16:12] LABS: BF LYMPHOCYTE 34 %; BF MACROPHAGE 46; BF MESOTHELIAL 2 %; BF MONOCYTE 2 %; BF OTHER CELLS 1; BF TOTAL CELLS COUNTED 100
== END ==
LOC: RAH 08:57
PROVIDERS: ATTEND Internal Medicine Gastroenterology
DX: R18.8 Other ascites (principal); K74.60 Unspecified cirrhosis of liver; K72.90 Hepatic failure, unspecified without coma; K21.00 Gastro-esophageal reflux disease with esophagitis, without bleeding; K57.30 Diverticulosis of large intestine without perforation or abscess without bleeding; K55.9 Vascular disorder of intestine, unspecified; E11.9 Type 2 diabetes mellitus without complications; E78.5 Hyperlipidemia, unspecified; I10 Essential (primary) hypertension; F32.A Depression, unspecified; I85.00 Esophageal varices without bleeding; E66.01 Morbid (severe) obesity due to excess calories; E55.9 Vitamin D deficiency, unspecified; I81 Portal vein thrombosis; D64.9 Anemia, unspecified; Z79.01 Long term (current) use of anticoagulants; Z68.34 Body mass index [BMI] 34.0-34.9, adult; Z86.0100 Personal history of colon polyps, unspecified
CPT/HCPCS: 36415; 49083; 80053; 85025; 85610; 85730; 89051; C1729

== ENCOUNTER → 2024-12-08 | Outpatient (CLI) | payer OTHER ==
[~2024-12-08] MED LIST changes: -FERR-82 PO; -FURO20TA4 PO; +FURO40TA5 PO; +SPIR100T5 PO; -SPIR50TA5 PO
--- NOTE | 2024-12-08 10:45 | NUR ---
U/S GD PARACENTESIS PROCEDURE PERFORMED BY DR Matthew ARORA. PUNCTURE SITE RLQ AND PATIENT TOLERATED PROCEDURE WELL. TOTAL REMOVED 3 LITERS OF CLEAR YELLOW FLUID. SPECIMEN SENT TO LAB. END OF PROCEDURE AT 1015. CATHETER REMOVED AND DRESSING APPLIED. NO BLEEDING NOTED. DISCHARGE INSTRUCTIONS GIVEN TO PATIENT AND VERBALIZED UNDERSTANDING. DISCHARGED VIA AMBULATION AT 1045. AAO X3 WITH NO C/O PAIN.
--- NOTE | 2024-12-08 10:50 | HMCIMG ---
ULTRASOUND GUIDED PARACENTESIS: INDICATION: Ascites TECHNIQUE: Informed consent was obtained. Timeout performed. All elements of maximal sterile barrier technique, including hand hygiene and cutaneous antisepsis were used. Patient was placed supine. Right lower quadrant was prepped and draped in sterile fashion. Local anesthesia was applied. Then, under ultrasound guidance, a 5F centesis needle was advanced through the abdominal wall and into a pocket of fluid in the peritoneum. It yielded 3 L of fluid. The catheter was removed and sterile dressing applied. Blood pressure monitoring was performed during the procedure. Complications: None Blood loss: <5 mL. IMPRESSION: Successful ultrasound guided paracentesis.
[2024-12-08 13:46] LABS: APPEARANCE BODY FLUID TURBID (CLEAR); COLOR,BODY FLUID YELLOW (LT YELLOW); SPECIMENTYPE,BODY FLUID ASCITES; TOTAL VOLUME,BODY FLUID 3000 mL
[2024-12-08 15:31] LABS: BODY FLUID RBC 232 /cu. mm.; BODY FLUID WBC 139 /cu. mm.
[2024-12-08 16:27] LABS: BF LYMPHOCYTE 76 %; BF MONOCYTE 5 %; BF TOTAL CELLS COUNTED 100
== END ==
LOC: RAH 08:50
PROVIDERS: ATTEND Internal Medicine Gastroenterology
DX: R18.8 Other ascites (principal); K74.60 Unspecified cirrhosis of liver; K21.00 Gastro-esophageal reflux disease with esophagitis, without bleeding; K57.30 Diverticulosis of large intestine without perforation or abscess without bleeding; K76.82 Hepatic encephalopathy; I85.00 Esophageal varices without bleeding; I81 Portal vein thrombosis; E11.9 Type 2 diabetes mellitus without complications; E78.5 Hyperlipidemia, unspecified; K55.9 Vascular disorder of intestine, unspecified; E55.9 Vitamin D deficiency, unspecified; I10 Essential (primary) hypertension; F32.A Depression, unspecified; E66.01 Morbid (severe) obesity due to excess calories; Z86.2 Personal history of diseases of the blood and blood-forming organs and certain disorders involving the immune mechanism; Z68.31 Body mass index [BMI] 31.0-31.9, adult; Z79.899 Other long term (current) drug therapy; Z86.0100 Personal history of colon polyps, unspecified
CPT/HCPCS: 49083; 89051; C1729

== ENCOUNTER → 2025-02-11 | Outpatient (CLI) | payer OTHER ==
[2025-02-11 10:08] LABS: RED BLOOD CELL COUNT(AUTO) 2.69 MIL/uL (4.00-5.50); WHITE BLOOD COUNT (AUTO) 5.7 K/uL (4.8-10.8)
[2025-02-11 10:09] LABS: IMMATURE GRANULOCYTE ABSOLUTE 0.05 K/uL (0-1); NUCLEATED RED BLOOD CELLS 0.0 % (0.0-0.19); PLATELET COUNT (AUTO) 102 K/uL (130-400); RED CELL DISTRIBUTION WIDTH 16.3 % (11.0-15.5)
[2025-02-11 10:20] LABS: INR 1.25 (0.85-1.15)
[2025-02-11 10:25] LABS: ASPARTATE AMINOTRANSFERASE 44.0 U/L (10-37); CREATININE 1.3 mg/dL (0.5-1.0); GLOMERULAR FILTR. RATE CALC 46.0 mL/min (>90); GLUCOSE,RANDOM 188.0 mg/dL (70-105); SODIUM SERUM 132.0 mmol/L (136-145); TOTAL PROTEIN, SERUM 6.4 g/dL (6.0-8.3); UREA NITROGEN, BLOOD 21.0 mg/dL (7-18)
--- NOTE | 2025-02-11 10:30 | NUR ---
U/S GD PARACENTESIS NOT DONE U/S PERFORM BY Memo OHARA RDMS. IMAGES REVIEWED BY DR SIGALA. NOT ENOUGH FLUID TO SAFELY PERFORM PROCEDURE. INFORMED PT AND DAUGHTER. VERBALIZED UNDERSTANDING. DISCHARGE VIA WHEELCHAIR. DENIES PAIN. A&O.
--- NOTE | 2025-02-11 14:11 | HMCIMG ---
US ABD LIMITED/ABD WALL HISTORY: Rule out ascites for possible paracentesis.. COMPARISON: None TECHNIQUE: All 4 quadrant the abdomen was evaluated.. FINDINGS: All 4 quadrant abdomen demonstrate there is minimal ascites with no large cysts a pocket for paracentesis. . IMPRESSION: Small ascites not enough fluid for paracentesis.
== END | disposition home or self-care (01) ==
LOC: RAH 09:13
PROVIDERS: ATTEND Internal Medicine
DX: R18.8 Other ascites (principal)
CPT/HCPCS: 76705; 80053; 85025; 85610; 85730